=== PATIENT | male | born 1945 | race Caucasian/White ===

== ENCOUNTER → 2017-09-16 12:42 | Outpatient (CLI) | payer MEDICARE, MEDICAID, SELFPAY ==
--- NOTE | 2017-09-16 14:00 | DI.REPORT_ITS ---
SYMPTOMS/DIAGNOSIS: PAIN RT GROIN, R10.31 MRI OF THE PELVIS: Routine noncontrast examination was performed. The visualized bowel is unremarkable. The urinary is intact. The reproductive organs are unremarkable. No free pelvic fluid or adenopathy is present. The visualized abdominal aorta and its runoff are unremarkable. There is a fat containing left inguinal hernia present. The marrow signal is within normal limits. No evidence of an occult fracture or avascular necrosis. The muscles show normal signal and size. The visualized lower lumbar spine shows no evidence of central spinal canal or neural foraminal stenosis. IMPRESSION: Fat containing left inguinal hernia. No evidence of a pelvic mass or adenopathy.
== END ==
PROVIDERS: PCP Nurse Practitioner; Visit Provider Nurse Practitioner
DX: R10.31 Right lower quadrant pain (principal); K40.90 Unilateral inguinal hernia, without obstruction or gangrene, not specified as recurrent
CPT/HCPCS: 72195

== ENCOUNTER 2017-10-20 10:40 | Outpatient (CLI) | payer MEDICARE, MEDICAID, SELFPAY ==
--- NOTE | 2017-10-20 10:16 | DI.RAD_ITS ---
SYMPTOMS/DIAGNOSIS: CAREN HIP PAIN, M25.551, M25.552 PELVIS AND BILATERAL HIPS: The hip joint spaces are well maintained. There is minimal acetabular spurring. There is mild spurring at the greater trochanters. The SI joints are not optimally seen however there is apparent partial ankylosis. This is better seen on previous CT from [id number]. The findings could be secondary to ankylosing spondylitis. Clinical correlation is recommended.
[2017-10-20 11:08] LABS: HCT 45.1 % (40.0-50.0); HGB 15.1 g/dL (13.5-17.5); Mean Corp. HGB Concentration 33.5 g/dL (32.0-36.0); Mean Corpuscular Hemoglobin 30.5 pg (27.0-33.0); Mean Corpuscular Volume 91.1 fL (80-95); Mean Platelet Volume 10.4 fL (8.0-11.0); Platelet Count 227 x1000/uL (130-400); RBC 4.95 m/cumm (4.50-6.00); RBC Distribution Width 13.1 % (11.8-14.1); White Blood Cell Count 7.81 k/cumm (4.4-10.8)
[2017-10-20 11:47] LABS: Hemoglobin A1C 9.9 % (4.5-6.2)
[2017-10-20 12:13] LABS: ALT 40 U/L (12-78); AST 21 U/L (15-37); Albumin 3.8 g/dL (3.4-5.0); Alkaline Phosphatase 124 U/L (46-116); Anion Gap 10.2 mmol/L (3-11); BUN 25 mg/dL (7-18); Bilirubin, Total 0.8 mg/dL (0.2-1.0); CO2 23.8 mmol/L (21.0-32.0); CREATININE 1.01 mg/dL (0.70-1.30); Calcium 9.3 mg/dL (8.5-10.1); Chloride 97 mmol/L (98-107); Cholesterol 251 mg/dL (50-200); Glucose 366 mg/dL (70-100); HDL Cholesterol 41 mg/dL (40-60); LDL CHOLESTEROL 173 mg/dL (<100); Potassium 5.4 mmol/L (3.5-5.1); Sodium 131 mmol/L (136-145); Total Protein 7.5 g/dL (6.4-8.2); Triglyceride 286 mg/dL (30-150)
== END 2017-10-20 11:00 ==
PROVIDERS: PCP Nurse Practitioner; Visit Provider Nurse Practitioner
DX: I10 Essential (primary) hypertension (principal); E11.9 Type 2 diabetes mellitus without complications; M25.551 Pain in right hip; M25.552 Pain in left hip; E78.00 Pure hypercholesterolemia, unspecified
CPT/HCPCS: 36415; 73521; 80053; 80061; 83721; 85027; 83036

== ENCOUNTER 2017-10-27 13:27 | Outpatient (REF) | payer MEDICARE, MEDICAID, SELFPAY ==
[2017-10-27 14:09] LABS: C-Reactive Protein 0.26 mg/dL (0.0-0.3)
[2017-10-27 15:46] LABS: ESR 18 MM/HR (1-20)
[2017-10-31 08:42] LABS: HLA-B27 Result Negative
== END 2017-10-27 13:47 ==
LOC: LBN 13:27
PROVIDERS: PCP Nurse Practitioner; Visit Provider Nurse Practitioner
DX: M25.559 Pain in unspecified hip (principal); M25.50 Pain in unspecified joint; M45.9 Ankylosing spondylitis of unspecified sites in spine
CPT/HCPCS: 85652; 86812; 84080; 86140

== ENCOUNTER 2018-01-25 11:16 | Observation (INO) | payer MEDICARE, MEDICAID, SELFPAY ==
[2018-01-25] VITALS (77 sets, daily range): BP systolic 96–202; BP diastolic 70–156; PULSE 61–79; RESP 10–21; TEMP 36.5–36.6; O2SAT 88–100
--- NOTE | 2018-01-25 10:54 | W.ED.GENAD ---
Discharge Plan Disposition Condition: Stable Discharge Details Chief Complaint: Chest Pain Reason For Visit: CHEST PAIN Admit Date/Time: 01/25/18 18:34 Admit Provider: Dilan Aguilar Attending Provider: Carson Mccrary Primary Care Provider: Eleonora Ramirez ED Provider: Maxine Becerra Discharge Instructions Activity:: No Strenuous Activity Equipment/Supplies:: No Equipment Needed Diet:: Cardiac Diet Discharge Orders Discharge Orders: Discharge Order (Routine); Ordered 01/26/18 Ordered By: Carson Mccrary Discharge Data Discharge Date/Time-TO BE ENTERED AT DEPARTURE: 01/25/18 20:07 Medical Decision Making Manuel Triplett is a 72 y/o man with history of coronary artery disease, insulin dependent diabetes, GERD, hypertension who presented to the emergency department with exertiona chest pain, SOB, and RUQ abd pain>LUQ. On exam Pt is well and non-toxic appearing, comfortable. Benign cardiopulmonary exam. TTP across upper abd without peritoneal signs. Concern for ACS vs PE vs PNA vs GB dz vs pancreatitis vs GERD vs metabolic/lyte derangement vs less likely other acute abd process. Exam/hx not c/w sepsis, acute aortic process, mesentric ischemia. Plan for EKG, cxr, screening labs, telemetry, RUQ US. Will monitor and reassess. EKG shows no STEMI. CXR okay. US okay. Pt reporting worsening abd pain. D-dimer elevated. Trop okay. Unclear etiology of Pt's symptoms, however in setting of uncontrolled DM, taking no meds, concern for possible acute abd pathology, PE, PNA, other. Plan for CT chest/abd/pelvis. CT shows ? mild enteritis, no other acute process. Given exertional CP, concern for unstable angina. Rpt trop okay, rpt EKG. Plan for admission. Clinical Impression: chest pain, abd pain Disposition: [facility] inpt Medical Records Medical records reviewed: Yes I reviewed the patient's medical records. Imaging Data Radiologic Study: Attestation: I personally reviewed and interpreted this imaging study as follows: Radiologist's impression: PA AND LATERAL CHEST: Comparison 04/28/17. The heart is normal in size. The lungs are clear. The mediastinal structures and pleura appear intact. CONCLUSION: Normal chest. CT SCAN OF THE ABDOMEN AND PELVIS: Comparison is 07/29/17. There is no evidence of a hepatic mass. The portal and superior mesenteric veins are patent. The gallbladder is negative. No biliary ductal dilatation is seen. The pancreas, spleen and adrenal glands are unremarkable. Note is made of prior granulomatous disease in the spleen and liver. The kidneys show normal and symmetric enhancement. No solid renal mass is seen. Note is made of bilateral hypodensities most suggestive of renal cysts. No obstructive uropathy is identified. The urinary bladder is intact. The prostate gland is enlarged. There is atherosclerosis of the abdominal aorta, but no aneurysmal dilatation is seen. No significant abdominal or pelvic adenopathy, ascites or pneumoperitoneum is present. There is a small hiatal hernia. There is diverticulosis of the colon, but no evidence of acute diverticulitis. There is a normal appendix visualized. There is a question of mild thickening of the wall of a few loops of small bowel in the left upper quadrant and a mild enteritis cannot be excluded. Degenerative changes are present in the spine. IMPRESSION: Question of mild thickening of the wall of loops of small bowel in the left upper quadrant, which may represent a mild enteritis. CT SCAN OF THE CHEST: CT scan of the chest was performed according to the pulmonary embolus protocol. There is no evidence of a pulmonary embolus. The thoracic aorta shows no evidence of dissection or aneurysm. Heart size is mildly enlarged. No evidence of right ventricular dysfunction. No significant pericardial effusion is seen. Coronary artery calcifications are present. No significant thoracic adenopathy, pleural effusion or pneumothorax is identified. No focal infiltrates are seen. The tracheobronchial tree is unremarkable. Degenerative changes are seen in the spine. No aggressive osseous lesions are identified. IMPRESSION: No acute pulmonary process. No evidence of a pulmonary embolus, thoracic aortic dissection or aneurysm. ABDOMINAL ULTRASOUND: Routine examination. The aorta and IVC are unremarkable. The liver is enlarged measuring 19 cm in length. There is diffuse increased echogenicity of the liver consistent with fatty infiltration. No evidence of a hepatic mass is seen. The gallbladder, bile ducts and spleen are unremarkable. There is limited visualization of the head and body of the pancreas but the visualized are unremarkable. The kidneys are unremarkable except for tiny simple cysts seen in the left kidney. IMPRESSION: Hepatomegaly and hepatic steatosis. Lab Data Lab results reviewed: Yes I reviewed the patient's lab results. ECG Data Attestation: I personally reviewed and interpreted this ECG (s) as follows: Interpretation: EKG shows sinus rhythm at 65, left axis, nonspecific T wave changes, nondiagnostic EKG HPI General Mode of arrival: ambulatory. Date/Time Provider Initiated Documentation: 01/25/18 11:22. Limitations to Documentation: no limitations. Information obtained by: patient, RN notes reviewed and old records reviewed. HPI Narrative: Manuel Triplett is a 72 y/o man with history of coronary artery disease, insulin dependent diabetes, GERD, hypertension presenting to the emergency department with chest pain and abdominal pain. Patient reports that 8 months ago he stopped taking his Plavix, insulin, and all of his other medications because he did not feel like taking them anymore. Patient reports that he has felt fine since stopping his medications until the past few days. He reports that 3 or 4 days ago he developed dull pain across his chest worse with exertion. He reports that he has been having the pain while he goes outside to feed his animals, and then he comes in, lies down, and the pain improves. Patient reports that this morning he developed sharp pain in his right chest and in his upper abdomen that was more severe and was stabbing in nature. He called his PCP, who told him to come to the emergency room for evaluation. Patient reports that he has had shortness of breath over the past few days associated with his chest pain, and also shortness of breath associated with his worsening pain today. Upon arrival here his pain had improved. No fever, no cough, no vomiting/diarrhea, no dysuria, no weakness, no numbness/tingling, no rash. No recent illnesses. Has been eating and drinking as usual. Related Data Home Medications Medication Instructions Recorded Confirmed Cookistouch Ultra Test #180 strip 10/31/14 01/31/18 lancets [Socialltouch Delica] #100 ea 01/21/17 01/31/18 blood-glucose meter [Onetouch #1 01/22/17 01/31/18 Verio] blood sugar diagnostic [Onetouch #100 strip 07/20/17 01/31/18 Verio] omeprazole 40 mg capsule,delayed 40 mg PO DAILY #90 cap 02/01/18 release clopidogrel 75 mg tablet 75 mg PO DAILY #90 tab 02/02/18 insulin glargine (U-100) 100 30 unit SC DAILY #45 ml 02/02/18 unit/mL (3 mL) subcutaneous pen isosorbide mononitrate ER 30 mg 30 mg PO DAILY #90 tab 02/02/18 tablet,extended release 24 hr lisinopril 20 mg tablet 20 mg PO DAILY #90 tab 02/02/18 metoprolol tartrate 25 mg tablet 25 mg PO Q12H #180 tab 02/02/18 nitroglycerin 0.4 mg sublingual 0.4 mg SUBLINGUAL Q5 MIN PRN X3 02/02/18 tablet PRN #60 tab pen needle, diabetic 32 gauge x #150 each 02/02/18 rosuvastatin 40 mg tablet 40 mg PO DAILY #90 tab 02/02/18 tamsulosin 0.4 mg capsule 0.4 mg PO DAILY #90 cap 02/02/18 Previous Rx's Medication Instructions Recorded lancets [Onetouch Deljuanpablo] #100 ea 01/21/17 blood sugar diagnostic [Onetouch #100 strip 07/20/17 Verio] omeprazole 40 mg capsule,delayed 40 mg PO DAILY #90 cap 02/01/18 release clopidogrel 75 mg tablet 75 mg PO DAILY #90 tab 02/02/18 insulin glargine (U-100) 100 30 unit SC DAILY #45 ml 02/02/18 unit/mL (3 mL) subcutaneous pen isosorbide mononitrate ER 30 mg 30 mg PO DAILY #90 tab 02/02/18 tablet,extended release 24 hr lisinopril 20 mg tablet 20 mg PO DAILY #90 tab 02/02/18 metoprolol tartrate 25 mg tablet 25 mg PO Q12H #180 tab 02/02/18 nitroglycerin 0.4 mg sublingual 0.4 mg SUBLINGUAL Q5 MIN PRN X3 02/02/18 tablet PRN #60 tab pen needle, diabetic 32 gauge x #150 each 02/02/18 rosuvastatin 40 mg tablet 40 mg PO DAILY #90 tab 02/02/18 tamsulosin 0.4 mg capsule 0.4 mg PO DAILY #90 cap 02/02/18 Allergies Allergy/AdvReac Type Severity Reaction Status Date / Time cayenne Allergy Severe Swelling/Ed Unverified 01/31/18 13:19 gigi No Known Drug Allergies Allergy Unverified 01/31/18 13:19 Review of Systems Review of Systems Constitutional: denies fevers Eyes: denies eye pain ENT: denies facial pain, dental pain, sore throat Cardiovascular: reports chest pain, denies edema Respiratory: denies cough, reports SOB GI: denies vomiting, diarrhea, reports abd pain : denies flank pain MSK: denies back pain, neck pain, arthralgias, myalgias Skin: denies rash Neuro: denies headaches, lightheadedness, weakness PFSH 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) Non compliance w medication regimen (Acute) CAD (coronary artery disease) DM (diabetes mellitus) Essential hypertension GERD (gastroesophageal reflux disease) History of colon polyps Hyperlipidemia Family History Mother Essential hypertension Personal history of malignant neoplasm Myocardial infarction Father Personal history of malignant neoplasm Brother Myocardial infarction Colonoscopy (05/23/15) Colonoscopy - MAC EGD - MAC EGD w/ BX (06/08/16) Repair of inguinal hernia Rotator Cuff Repair (09/02/14) Stent placement Family History Mother Essential hypertension Personal history of malignant neoplasm Myocardial infarction Father Personal history of malignant neoplasm Brother Myocardial infarction Medical History 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) Non compliance w medication regimen (Acute) CAD (coronary artery disease) DM (diabetes mellitus) Essential hypertension GERD (gastroesophageal reflux disease) History of colon polyps Hyperlipidemia Social History adopted: No caregiver/support person: No foster care: No household members: none housing: house lives independently: Yes number of children: 0 penitentiary: No current occupational status: disabled pets and animals: Yes leisure activities: hunting and fishing Hx Recent Travel: No well-balanced diet: rarely or never daily servings fruits/ve-1 daily servings of milk/calcium: 0-1 eating out: rarely or never reads food labels: seldom or never Smoking/Tobacco Use Status: Never Surgical History Colonoscopy (05/23/15) Colonoscopy - MAC EGD - MAC EGD w/ BX (06/08/16) Repair of inguinal hernia Rotator Cuff Repair (09/02/14) Stent placement Social History adopted: No caregiver/support person: No foster care: No household members: none housing: house lives independently: Yes number of children: 0 penitentiary: No current occupational status: disabled pets and animals: Yes leisure activities: hunting and fishing Hx Recent Travel: No well-balanced diet: rarely or never daily servings fruits/ve-1 daily servings of milk/calcium: 0-1 eating out: rarely or never reads food labels: seldom or never Smoking/Tobacco Use Status: Never Exam Narrative Exam Narrative: Constitutional: well and [id number], pleasant, conversing normally HENT: head atraumatic, normocephalic normal inspection, mucous membranes moist Eyes: conjunctiva normal, sclera normal, pupils 3mm b/l Neck: no stridor, normal ROM, trachea midline Chest: normal inspection Resp: normal work of breathing, LCTAB Cardio: normal rate, normal rhythm, no murmur appreciated GI: abdomen soft, non-distended, tender across upper abd, worse on right, neg murphys, no rebound or guarding Back: normal inspection, no rash Skin: warm, dry, normal color, no rash Neuro: alert, not altered, grossly non-focal, normal tone Ext: no edema Psych: normal mood, normal affect, normal behavior
--- NOTE | 2018-01-25 11:23 | DI.RAD_ITS ---
SYMPTOMS/DIAGNOSIS: SHORTNESS OF BREATH PA AND LATERAL CHEST: Comparison 04/28/17. The heart is normal in size. The lungs are clear. The mediastinal structures and pleura appear intact. CONCLUSION: Normal chest.
[2018-01-25 11:34] LABS: Abs Immature Grans 0.02 k/cumm (0.0-0.09); Absolute Basophil Count 0.03 k/cumm (0.0-0.2); Absolute Eosinophil Count 0.16 k/cumm (0.0-0.7); Absolute Lymphocyte Count 2.01 k/cumm (1.2-3.4); Absolute Monocyte Count 0.51 k/cumm (0.11-0.7); Absolute Neutrophil Count 3.39 k/cumm (1.2-6.7); Basophils % 0.5; Eosinophils % 2.6; HCT 44.2 % (40.0-50.0); HGB 15.2 g/dL (13.5-17.5); Immature Grans % 0.3; Lymphocytes % 32.8; Mean Corp. HGB Concentration 34.4 g/dL (32.0-36.0); Mean Corpuscular Hemoglobin 30.7 pg (27.0-33.0); Mean Corpuscular Volume 89.3 fL (80-95); Mean Platelet Volume 9.8 fL (8.0-11.0); Monocytes % 8.3; Neutrophils % 55.5; Platelet Count 259 x1000/uL (130-400); RBC 4.95 m/cumm (4.50-6.00); RBC Distribution Width 13.6 % (11.8-14.1); White Blood Cell Count 6.12 k/cumm (4.4-10.8)
--- NOTE | 2018-01-25 11:53 | DI.US_ITS ---
SYMPTOMS/DIAGNOSIS: RUQ PAIN AND TENDERNESS ABDOMINAL ULTRASOUND: Routine examination. The aorta and IVC are unremarkable. The liver is enlarged measuring 19 cm in length. There is diffuse increased echogenicity of the liver consistent with fatty infiltration. No evidence of a hepatic mass is seen. The gallbladder, bile ducts and spleen are unremarkable. There is limited visualization of the head and body of the pancreas but the visualized are unremarkable. The kidneys are unremarkable except for tiny simple cysts seen in the left kidney. IMPRESSION: Hepatomegaly and hepatic steatosis. The findings were discussed with Dr. Becerra of the emergency department on the date of the examination.
[2018-01-25 12:03] LABS: ALT 35 U/L (12-78); AST 16 U/L (15-37); Albumin 3.6 g/dL (3.4-5.0); Alkaline Phosphatase 151 U/L (46-116); Anion Gap 12.5 mmol/L (3-11); BUN 21 mg/dL (7-18); Bilirubin, Total 0.5 mg/dL (0.2-1.0); CO2 24.5 mmol/L (21.0-32.0); CREATININE 0.92 mg/dL (0.70-1.30); Calcium 9.3 mg/dL (8.5-10.1); Chloride 97 mmol/L (98-107); Glucose 342 mg/dL (70-100); Lipase 144 U/L (73-393); Potassium 4.2 mmol/L (3.5-5.1); Sodium 134 mmol/L (136-145); Total Protein 7.8 g/dL (6.4-8.2); Troponin I 0.02 ng/mL (0.00-0.06)
[2018-01-25 12:06] LABS: D-Dimer 627 ng/mlFEU (<500)
[2018-01-25 13:56] LABS: Bilirubin Negative (Negative); Blood Negative (Negative); Clarity Clear; Glucose 500 mg/dL (Negative); Ketones 15 mg/dL (Negative); Leukocyte Esterase Negative (Negative); Nitrite Negative (Negative); Specific Gravity 1.015 (1.005-1.025); Urobilinogen 0.2 EU/dL (Up TO 0.2); pH 5.5 (5-8)
[2018-01-25] MEDS: Omnipaque 350 MG/ML 100 ML BTL IJ (14:12)
--- NOTE | 2018-01-25 14:26 | DI.CT_ITS ---
SYMPTOMS/DIAGNOSIS: UPPER ABDOMINAL PAIN RADIATING INTO CHEST, SHORTNESS OF BREATH CT SCAN OF THE CHEST, ABDOMEN AND PELVIS: CT angiography was performed with multi slice acquisition and multi planar and 3D reconstruction. CT SCAN OF THE ABDOMEN AND PELVIS: Comparison is 07/29/17. There is no evidence of a hepatic mass. The portal and superior mesenteric veins are patent. The gallbladder is negative. No biliary ductal dilatation is seen. The pancreas, spleen and adrenal glands are unremarkable. Note is made of prior granulomatous disease in the spleen and liver. The kidneys show normal and symmetric enhancement. No solid renal mass is seen. Note is made of bilateral hypodensities most suggestive of renal cysts. No obstructive uropathy is identified. The urinary bladder is intact. The prostate gland is enlarged. There is atherosclerosis of the abdominal aorta , but no aneurysmal dilatation is seen. No significant abdominal or pelvic adenopathy, ascites or pneumoperitoneum is present. There is a small hiatal hernia. There is diverticulosis of the colon, but no evidence of acute diverticulitis. There is a normal appendix visualized. There is a question of mild thickening of the wall of a few loops of small bowel in the left upper quadrant and a mild enteritis cannot be excluded. Degenerative changes are present in the spine. IMPRESSION: Question of mild thickening of the wall of loops of small bowel in the left upper quadrant, which may represent a mild enteritis. CT SCAN OF THE CHEST: CT scan of the chest was performed according to the pulmonary embolus protocol. There is no evidence of a pulmonary embolus. The thoracic aorta shows no evidence of dissection or aneurysm. Heart size is mildly enlarged. No evidence of right ventricular dysfunction. No significant pericardial effusion is seen. Coronary artery calcifications are present. No significant thoracic adenopathy, pleural effusion or pneumothorax is identified. No focal infiltrates are seen. The tracheobronchial tree is unremarkable. Degenerative changes are seen in the spine. No aggressive osseous lesions are identified. IMPRESSION: No acute pulmonary process. No evidence of a pulmonary embolus, thoracic aortic dissection or aneurysm. The findings were discussed with the Emergency Department on the date of the examination.
[2018-01-25 15:57] LABS: Troponin I 0.02 ng/mL (0.00-0.06)
[2018-01-25] MEDS: Normal Saline 1,000 ML 1000 ML IV (16:17)
[2018-01-25] MEDS: Aspirin 81 MG CHEW 324 MG CH (16:49)
[2018-01-25] MEDS: Clopidogrel 300 MG TAB PO (19:30)
[2018-01-25] MEDS: Metoprolol 25 MG TAB PO ×2 (19:31→23:17)
[2018-01-25 19:59] LABS: Troponin I 0.02 ng/mL (0.00-0.06)
[2018-01-25] MEDS: Rosuvastatin 10 MG TAB 40 MG PO (20:46)
[2018-01-25] MEDS: Enoxaparin 40 MG/0.4 ML SYR SC (20:46)
--- NOTE | 2018-01-25 21:07 | W.PM.HP.N ---
Date of service: 01/25/18 Time of Service: 21:32 Assessment and Plan (1) Chest pain: Current visit: No Status: Acute So far he is ruled out for an acute myocardial infarction by multiple normal troponin I levels. Some features of his chest pain are suggestive of his GERD while the exertional dyspnea and exertional chest discomfort are worrisome for progressive coronary artery disease. Patient was signed out to me by the emergency room as a possible unstable angina although he had no dynamic EKG changes and negative troponin levels. Nevertheless he deserves further investigation with a stress MPI study. Patient needs to restart his statin therapy as well as beta blockers and aspirin and Plavix to treat his known coronary artery disease. If his stress MPI is grossly abnormal and he should be referred for cardiac catheterization with either PCI or revascularization. (2) Essential hypertension: Current visit: No Status: Acute I will resume his metoprolol as well as his lisinopril to control his hypertension. (3) CAD (coronary artery disease), apache coronary artery: Current visit: No Status: Acute Workup as outlined above (4) Uncontrolled type 2 diabetes mellitus: Current visit: No Status: Acute We will start the patient on carbohydrate coverage as well as sliding scale coverage for elevated blood sugars. I will also start him on low-dose twice a day treatment with Levemir. Check a glycohemoglobin A1c in the morning. History of Present Illness Chief Complaint: chest pain Narrative: 72-year-old male with a past medical history significant for coronary artery disease status post single coronary stent 5 or 6 years ago, TIAs/CVA, hypertension, hyperlipidemia, type 2 diabetes mellitus requiring insulin, gastroesophageal reflux disease who presents emergency department with acute right sided sharp chest pain that began at rest while he was talking with his neighbor. He says it was a stabbing type of pain and took his breath away. There was radiation of the pain across to the left side of his chest. He is also been experiencing exertional dyspnea for the last 2-3 months as well as epigastric bloating and discomfort. For last few days he has had exertional chest discomfort when he goes up to feed his animals. Patient previously had been on clopidogrel, insulin, metoprolol, lisinopril, Janumet, Flomax but stopped all of his medications about 6 months ago. He says he stopped taking his medications because he felt that they were not helping him and were not improving his symptoms. He says at times his blood sugars were going up to 500 in spite of his insulin and Janumet. Today when he had the chest pain he tried calling his primary care provider but could not reach his provider however his doctor's office called EMS for him because of his acute dyspnea. Workup in the emergency room included routine labs, EKG, chest x-ray. Serial EKGs were obtained the first 1 at 11:09 AM and repeat one performed at 194. These demonstrated normal sinus rhythm at a rate of 65 bpm with nonspecific flattening of his T waves in the inferolateral leads. He has early transition of his R waves in V2 suggestive of pulmonary disease. He also has a left anterior fascicular block. Repeat ECG at 1941 hrs. showed no changes. His routine labs including CBC which was unremarkable. D-dimer was elevated at 627 but still within normal when corrected for his age. CMP showed elevated BUN of 21 with a normal creatinine 0.92 and a glucose of 342. LFTs were normal except for his alkaline phosphatase of 151. Troponin levels were normal x3 sets. Lipase was normal 141. Urinalysis was remarkable for 500 mg/dL of glucose and 50 mg/dL ketones. PA lateral chest x-ray was read as normal. Abdominal ultrasound was performed and shows hepatomegaly and hepatic steatosis. Gallbladder bile ducts and spleen were unremarkable. CT of the abdomen pelvis and chest with contrast showed questionable mild thickening of the wall of the loops of small bowel in the left upper quadrant suggestive of mild enteritis. CT scan of the chest showed no acute bony process and no evidence of aortic aneurysm or pulmonary embolus. When asked about anything that he was given that alleviated his chest discomfort he states that his chest pain was resolving by the time he reached the emergency room. He has remained pain-free since admission. Patient is now admitted in the ICU is a medical/surgical overflow on telemetry to evaluate his exertional dyspnea and his chest pains. Because of his known coronary artery disease with previous stent with no follow-up stress testing after the stent patient will need further evaluation with a treadmill stress MPI study to rule out progression of his coronary artery disease. Patient will be restarted on statin therapy along with beta blockers aspirin and Plavix as well as insulin to control his blood sugars. 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) Non compliance w medication regimen (Acute) CAD (coronary artery disease) DM (diabetes mellitus) Essential hypertension GERD (gastroesophageal reflux disease) History of colon polyps Hyperlipidemia Family History Mother Essential hypertension Personal history of malignant neoplasm Myocardial infarction Father Personal history of malignant neoplasm Brother Myocardial infarction Colonoscopy (05/23/15) Colonoscopy - MAC EGD - MAC EGD w/ BX (06/08/16) Repair of inguinal hernia Rotator Cuff Repair (09/02/14) Stent placement Family History Mother Essential hypertension Personal history of malignant neoplasm Myocardial infarction Father Personal history of malignant neoplasm Brother Myocardial infarction Medical History 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) Non compliance w medication regimen (Acute) CAD (coronary artery disease) DM (diabetes mellitus) Essential hypertension GERD (gastroesophageal reflux disease) History of colon polyps Hyperlipidemia Social History adopted: No caregiver/support person: No foster care: No household members: none housing: house lives independently: Yes number of children: 0 mcc: No current occupational status: disabled pets and animals: Yes leisure activities: hunting and fishing Hx Recent Travel: No well-balanced diet: rarely or never daily servings fruits/ve-1 daily servings of milk/calcium: 0-1 eating out: rarely or never reads food labels: seldom or never Smoking/Tobacco Use Status: Never Surgical History Colonoscopy (05/23/15) Colonoscopy - MAC EGD - MAC EGD w/ BX (06/08/16) Repair of inguinal hernia Rotator Cuff Repair (09/02/14) Stent placement Social History adopted: No caregiver/support person: No foster care: No household members: none housing: house lives independently: Yes number of children: 0 mcc: No current occupational status: disabled pets and animals: Yes leisure activities: hunting and fishing Hx Recent Travel: No well-balanced diet: rarely or never daily servings fruits/ve-1 daily servings of milk/calcium: 0-1 eating out: rarely or never reads food labels: seldom or never Smoking/Tobacco Use Status: Never Meds Home Medications Medication Instructions Recorded Confirmed Type Go-Page Digital MediaTouch Ultra Test #180 strip 10/31/14 02/08/18 History lancets [Onetouch Delica] #100 ea 01/21/17 02/08/18 Rx blood-glucose meter [Onetouch #1 01/22/17 02/08/18 History Verio] blood sugar diagnostic [Onetouch #100 strip 07/20/17 02/08/18 Rx Verio] omeprazole 40 mg capsule,delayed 40 mg PO DAILY #90 cap 02/01/18 02/08/18 Rx release clopidogrel 75 mg tablet 75 mg PO DAILY #90 tab 02/02/18 02/08/18 Rx insulin glargine (U-100) 100 30 unit SC DAILY #45 ml 02/02/18 02/08/18 Rx unit/mL (3 mL) subcutaneous pen isosorbide mononitrate ER 30 mg 30 mg PO DAILY #90 tab 02/02/18 02/08/18 Rx tablet,extended release 24 hr lisinopril 20 mg tablet 20 mg PO DAILY #90 tab 02/02/18 02/08/18 Rx metoprolol tartrate 25 mg tablet 25 mg PO Q12H #180 tab 02/02/18 02/08/18 Rx nitroglycerin 0.4 mg sublingual 0.4 mg SUBLINGUAL Q5 MIN PRN X3 02/02/18 02/08/18 Rx tablet PRN #60 tab pen needle, diabetic 32 gauge x #150 each 02/02/18 02/08/18 Rx 5/32 rosuvastatin 40 mg tablet 40 mg PO DAILY #90 tab 02/02/18 02/08/18 Rx tamsulosin 0.4 mg capsule 0.4 mg PO DAILY #90 cap 02/02/18 02/08/18 Rx meloxicam 15 mg tablet 15 mg PO DAILY #90 tab 02/08/18 02/08/18 Rx Allergies Allergy/AdvReac Type Severity Reaction Status Date / Time cayenne Allergy Severe Swelling/Ed Unverified 02/08/18 13:15 gigi No Known Drug Allergies Allergy Unverified 02/08/18 13:15 Exam Const General: cooperative, comfortable, no acute distress and well developed Nutritional Appearance: overweight Orientation: alert, awake and oriented x3 HENMT Head: normal to inspection, no palpable skull fracture, normocephalic and atraumatic General nose exam: external nose normal Face and sinus: normal facial exam Eyes General: appearance normal, both eyes and all related structures Neck Neck: normal visual inspection, full ROM, no lymphadenopathy, no meningeal signs, trachea midline and supple Thyroid: thyroid normal Carotids: normal carotid upstroke Lymphatic: no lymphadenopathy noted Chest Chest: normal inspection of the chest and normal palpation of entire chest wall Resp Effort & Inspection: normal respiratory effort and able to speak in complete sentences Auscultation: clear to auscultation bilaterally Cardio Jugular venous pressure: no JVD Palpation: normal PMI Rate: regular rate Rhythm: regular rhythm Heart Sounds: S1 normal and normal, physiologic split S2 Bruits: no abdominal aortic bruits and no carotid bruits Pulses: normal peripheral pulses GI Inspection: normal to inspection Palpation: soft and no hepatosplenomegaly Percussion: normal to percussion Auscultation: normal bowel sounds Rectal Exam: deferred Back/Spine/Pelvis Back: no CVA tenderness Cervical Spine: normal cervical lordosis Thoracic/Lumbar Spine: thoracic and lumbar spine normal to inspection Skin General skin exam: no rashes or lesions noted, elasticity normal and turgor normal Lesions: no lesions Rashes: no rashes Trauma: no lacerations or abrasions Wounds: no wounds Neuro General: alert, awake, oriented x3, moves all extremities and no focal motor deficits Cranial Nerves: CN's II-XI intact bilaterally Cognition: normal cognition Speech: speech normal Motor: muscle tone normal throughout, strength 5/5 throughout and no movement abnormalities noted Sensory Exam: no sensory deficits noted Extrem General: normal to inspection, full ROM, normal capillary refill, no joint enlargement and no calf tenderness Psych Appearance: grossly normal and well kempt Mental Status: mental status grossly normal Speech and Movement: speech and movement normal Mood: congruent mood Affect: normal affect Attitude: cooperative Thought Process: normal Thought Content: normal Insight: fair Judgment: fair Results Imaging Chest x-ray: report reviewed (CONCLUSION: Normal chest) Abdomen CT scan report/results: report reviewed (IMPRESSION: Question of mild thickening of the wall of loops of small bowel in the left upper quadrant, which may represent a mild enteritis.) CT scan - chest: report reviewed (MPRESSION: No acute pulmonary process. No evidence of a pulmonary embolus, thoracic aortic dissection or aneurysm.) Abdominal ultrasound report/results: report reviewed (IMPRESSION: Hepatomegaly and hepatic steatosis.) EKG: image reviewed (NSR 73 bpm, LAFB, nonspecific T wave flattening inferolateral leads) Labs : 01/25/18 11:22 01/25/18 11:22 Laboratory Results - last 24 hr 01/25/18 01/25/18 01/25/18 11:15 11:22 11:22 WBC 6.12 RBC 4.95 Hgb 15.2 Hct 44.2 MCV 89.3 MCH 30.7 MCHC 34.4 RDW 13.6 Plt Count 259 MPV 9.8 Immature Gran % 0.3 Neutrophils % 55.5 Lymphocytes % 32.8 Monocytes % 8.3 Eosinophils % 2.6 Basophils % 0.5 Absolute Neutrophils 3.39 Absolute Lymphocytes 2.01 Absolute Monocytes 0.51 Absolute Eosinophils 0.16 Absolute Basophils 0.03 D-Dimer 627 H Sodium 134 L Potassium 4.2 Chloride 97 L Carbon Dioxide 24.5 Anion Gap 12.5 H BUN 21 H Creatinine 0.92 Estimated GFR/1.73 m2 >= 60.00 Glucose 342 H Calcium 9.3 Total Bilirubin 0.5 AST 16 ALT 35 Alkaline Phosphatase 151 H Troponin I 0.02 Total Protein 7.8 Albumin 3.6 Lipase 144 Urine Color Urine Clarity Urine pH Ur Specific [place] Urine Protein Urine Ketones Urine Blood Urine Nitrite Urine Bilirubin Urine Urobilinogen Ur Leukocyte Esterase Urine Glucose 01/25/18 01/25/18 01/25/18 13:50 15:33 19:38 WBC RBC Hgb Hct MCV MCH MCHC RDW Plt Count MPV Immature Gran % Neutrophils % Lymphocytes % Monocytes % Eosinophils % Basophils % Absolute Neutrophils Absolute Lymphocytes Absolute Monocytes Absolute Eosinophils Absolute Basophils D-Dimer Sodium Potassium Chloride Carbon Dioxide Anion Gap BUN Creatinine Estimated GFR/1.73 m2 Glucose Calcium Total Bilirubin AST ALT Alkaline Phosphatase Troponin I 0.02 0.02 Total Protein Albumin Lipase Urine Color Yellow Urine Clarity Clear Urine pH 5.5 Ur Specific [place] 1.015 Urine Protein Negative Urine Ketones 15 H Urine Blood Negative Urine Nitrite Negative Urine Bilirubin Negative Urine Urobilinogen 0.2 Ur Leukocyte Esterase Negative Urine Glucose 500 H Last Vital Signs Temp 36.6 C 01/25/18 20:37 Pulse 66 01/25/18 20:37 Resp 13 01/25/18 20:37 BP 156/74 H 01/25/18 20:37 Pulse Ox 95 01/25/18 20:37
[2018-01-25] MEDS: Esomeprazole 40 MG CAPCR PO (22:10)
[2018-01-25] MEDS: Sucralfate 1 GM TAB PO (22:10)
[2018-01-25] MEDS: Insulin Aspart 300 UNITS/3 ML PEN SC (22:10)
[2018-01-25] MEDS: Normal Saline Flush 10 ML SYR IVP (23:28)
[2018-01-26] VITALS (10 sets, daily range): BP systolic 107–155; BP diastolic 48–79; PULSE 56–72; RESP 12–27; TEMP 36.5–36.8; O2SAT 91–97
[2018-01-26] MEDS: Metoprolol 25 MG TAB PO ×2 (06:40→12:07)
[2018-01-26 07:39] LABS: Cholesterol 235 mg/dL (50-200); HDL Cholesterol 33 mg/dL (40-60); LDL CHOLESTEROL 135 mg/dL (<100); Triglyceride 532 mg/dL (30-150)
[2018-01-26 07:51] LABS: Hemoglobin A1C 9.8 % (4.5-6.2)
[2018-01-26] MEDS: Sucralfate 1 GM TAB PO ×2 (08:19→12:07)
[2018-01-26] MEDS: Aspirin E.C. 81 MG TABEC PO (08:24)
[2018-01-26] MEDS: Clopidogrel 75 MG TAB PO (08:24)
[2018-01-26] MEDS: Lisinopril 20 MG TAB PO (08:24)
[2018-01-26] MEDS: Isosorbide Mononitrate 30 MG TABCR PO (08:27)
--- NOTE | 2018-01-26 08:27 | PHARADMIT ---
Admission Pharmacy Clinical Review CHEST PAIN Code Status Full Code Current Weight WgT-86.1 kg Renally Cleared and Narrow Therapeutic Index Meds CrCl~74 mL/min Meds-OK QTc Value / Action Taken QTc-421 na BP Control, Fever BP- 2155/74 Tmax- 36.6C Electrolytes reviewed Na- 134 K+4.2 DVT Prophylaxis Lovenox, Plavix,ASA-ec Opiate Usage / Scheduled Bowel Regimen Ordered No Yes Plt/SCr for Heparin / Enoxaparin Plts- 259 SCr-0.92 INR for Warfarin NA H/H stable, WBC/Bands H&H- 15.2/44.2 WBC- 6.12 Antibiotic appropriateness none Cultures and Sensitivities none Surgical ABX d/c within 24 hr na DM control / Insulin Dosing BG-342 Hg Aspart, Detemir Heart Failure (Check EF%) (SHIELA's, B-Block, Diuretics) Imdur, Lisinopril, Lopressor, IV to PO Switch No Home Meds Reviewed Yes Home Meds Not Ordered Flomax Comments Troponin: 0.02 ^ 0.02 ^ 0.02
[2018-01-26] MEDS: Insulin Aspart 300 UNITS/3 ML PEN SC ×4 (08:56→12:51)
--- NOTE | 2018-01-26 09:00 | MERGE_ITS ---
*[facility]* *[facility]* [address] [place] [address] Date of study: 01/26/2018 Transthoracic Echocardiography M-mode, complete 2D, complete spectral Doppler, and color Doppler *STUDY CONCLUSIONS* Summary: 1. Left ventricle: The cavity size was normal. Wall thickness was increased in a pattern of mild LVH. The estimated ejection fraction was 65%. Findings consistent with diastolic dysfunction. Doppler parameters are consistent with high ventricular filling pressure. 2. Mitral valve: There was mild regurgitation. 3. Left atrium: The atrium was mildly dilated. 4. Right ventricle: The cavity size was normal. Wall thickness was normal. Systolic function was normal. 5. Atrial septum: No defect or patent foramen ovale was identified. 6. Pulmonary arteries: Pulmonary systolic pressure was in the range of 15mm Hg to 25mm Hg. 7. Inferior vena cava: The vessel was normal in size. The respirophasic diameter changes were in the normal range (greater than or equal to 50%), consistent with normal central venous pressure. *PATIENT PRESENTATION* Height: 177.8cm ((70in) ) S/D Pressure: 155 / 74 Weight: 86.6kg ((190.6lb) ) BSA: 2.08m^2 Test start time: 09:00 AM. Test stop time: 10:00 AM. PERFORMING Unknown PERFORMING [facility] ORDERING Moisés Aguilar REFERRING Moisés Aguilar EMERGENCY MEDICAL TECHNICIAN/DRIVER Ny Brody RT (R)(CT), RDCS CONSULTING Eleonora Ramirez *PROCEDURE DATA* Procedure information: The patient was identified by two identifiers. This study was interpreted by [facility]. Pertinent images and digital data are archived for permanent storage and are available for subsequent review. Comparison was made to the study of 05/27/2016. Study status: Routine. Transthoracic echocardiography. M-mode, complete 2D, complete spectral Doppler, and color Doppler. A Transthoracic Echocardiogram was performed. Scanning was performed from the parasternal, apical, subcostal, and suprasternal notch acoustic windows. Images were obtained using an [id number] cardiac ultrasound machine. Image quality was good. Study completion: The patient tolerated the procedure well. History: PMH: Chest pain. *CARDIAC ANATOMY* Left ventricle: The cavity size was normal. Wall thickness was increased in a pattern of mild LVH. The estimated ejection fraction was 65%. The tissue Doppler parameters were abnormal. Findings consistent with diastolic dysfunction. Doppler parameters are consistent with high ventricular filling pressure. Aortic valve: Trileaflet. Doppler: There was no stenosis. There was no regurgitation. VTI ratio of LVOT to aortic valve: 0.74. Valve area (VTI): 2.6cm^2. Indexed valve area (VTI): 1.2cm^2/m^2. Peak velocity ratio of LVOT to aortic valve: 0.62. Valve area (Vmax): 2.2cm^2. Indexed valve area (Vmax): 1cm^2/m^2. Mean velocity ratio of LVOT to aortic valve: 0.66. Valve area (Vmean): 2.3cm^2. Indexed valve area (Vmean): 1.1cm^2/m^2. Mean gradient (S): 7.3mm Hg. Peak gradient (S): 13.8mm Hg. Aorta: Aortic root: The aortic root was normal in size. Ascending aorta: The ascending aorta was mildly dilated. Mitral valve: Doppler: There was no evidence for stenosis. There was mild regurgitation. Valve area by pressure half-time: 4cm^2. Indexed valve area by pressure half-time: 1.9cm^2/m^2. Left atrium: The atrium was mildly dilated. Atrial septum: No defect or patent foramen ovale was identified. Right ventricle: The cavity size was normal. Wall thickness was normal. Systolic function was normal. Pulmonic valve: Doppler: There was no evidence for stenosis. There was mild regurgitation. Tricuspid valve: Doppler: There was mild regurgitation. Pulmonary artery: Poorly visualized. Pulmonary systolic pressure was in the range of 15mm Hg to 25mm Hg. Right atrium: The atrium was normal in size. Pericardium: There was no pericardial effusion. Systemic veins: Inferior vena cava: The vessel was normal in size. The respirophasic diameter changes were in the normal range (greater than or equal to 50%), consistent with normal central venous pressure. Measurements Left ventricle Value 05/27/2016 Reference LV ID, ED, PLAX 6.0 cm 5.5 3.5 - 6.0 LV ID, ES, PLAX 3.8 cm 3.9 2.1 - 4.0 LV PW thickness, ED, PLAX 1.1 cm 1.4 LV end-diastolic volume, 63 ml 1-p A2C LV ejection fraction, 1-p 62 % 49 A2C LV end-diastolic volume, 96 ml 1-p A4C LV ejection fraction, 1-p 51 % 55 A4C LV e', lateral 0.039 m/sec LV E/e', lateral 17 LV e', medial 0.054 m/sec LV E/e', medial 13 LV e', average 0.046 m/sec LV E/e', average 15 Ventricular septum Value 05/27/2016 Reference IVS thickness, ED, PLAX 1.2 cm 1.5 LVOT Value 05/27/2016 Reference LVOT ID, A-P 2.1 cm 2.1 LVOT area 3.5 cm^2 3.4 LVOT peak velocity, S 1.16 m/sec 1.18 LVOT mean velocity, S 0.85 m/sec LVOT VTI, S 25.2 cm 28.2 LVOT peak gradient, S 5.4 mm Hg 5.6 LVOT mean gradient, S 3.3 mm Hg 3.7 Stroke volume (SV), LVOT 87 ml DP Stroke index (SV/bsa), 42 ml/m^2 LVOT DP Aortic valve Value 05/27/2016 Reference Aortic valve peak 1.9 m/sec velocity, S Aortic valve mean 1.28 m/sec velocity, S Aortic valve VTI, S 34.0 cm Aortic mean gradient, S 7.3 mm Hg 9 Aortic peak gradient, S 13.8 mm Hg 18 VTI ratio, LVOT/AV 0.74 0.6 Aortic valve area, VTI 2.6 cm^2 2 Velocity ratio, peak, 0.62 LVOT/AV Aortic valve area, peak 2.2 cm^2 2 velocity Velocity ratio, mean, 0.66 LVOT/AV Aortic valve area, mean 2.3 cm^2 velocity Aortic valve area/bsa, 1.1 cm^2/m^2 mean velocity Aorta Value 05/27/2016 Reference Aortic root ID, ED 3.5 cm 3.5 Ascending aorta ID, A-P, S 3.7 cm 3.7 Left atrium Value 05/27/2016 Reference LA ID, A-P, ES 4.1 cm LA ID/bsa, A-P 2.0 cm/m^2 <=2.2 LA area, ES, A4C (H) 28.2 cm^2 28 8.8 - 23.4 LA area, ES, A2C 22 cm^2 LA volume/bsa, ES, 1-p A4C 57 ml/m^2 51 LA volume, ES, 2-p 79 ml LA volume/bsa, ES, 2-p 38 ml/m^2 LA/aortic root ratio 1.18 1.18 Mitral valve Value 05/27/2016 Reference Mitral E-wave peak 0.68 m/sec 0.75 velocity Mitral A-wave peak 0.63 m/sec 0.52 velocity Mitral deceleration time 192 ms 150 - 230 Mitral pressure half-time 56 ms 81 Mitral E/A ratio, peak 1.07 1.44 Mitral valve area, PHT, DP 4 cm^2 2.7 Pulmonary veins Value 05/27/2016 Reference Pulmonary vein peak 0.39 m/sec 0.68 velocity, S Pulmonary vein peak 0.37 m/sec 0.64 velocity, D Pulmonary vein velocity 1.04 1.07 ratio, peak, S/D Pulmonary vein A-wave 0.24 m/sec reversal peak velocity Tricuspid valve Value 05/27/2016 Reference Tricuspid regurg peak 2.2 m/sec 2.8 velocity Tricuspid peak RV-RA 18.7 mm Hg 31.8 gradient Right atrium Value 05/27/2016 Reference RA area, ES, A4C 16.2 cm^2 15 8.3 - 19.5 Legend: (L) and (H) cheryle values outside specified reference range. I have personally reviewed the images and have reviewed and edited the reported findings. Electronically signed by Damaso Rucker MD 01/26/2018 10:42
--- NOTE | 2018-01-26 09:21 | PDOC.CMIN ---
- If Service Date Differs Date of service: 01/26/18 Time of Service: 09:21 Care Management Initial Assess REASON FOR HOSPITALIZATION:: Chest pain. PAST MEDICAL HISTORY/PAST SURGICAL HISTORY:: CAD, Diabetes, essential hypertension, GERD, colon polyps, hyperlipidemia. Surgical hx: colonoscopy, EGD, repair of inguinal hernia, rotator cuff repair, stent placement. PREVIOUS FUNCTIONAL STATUS/SOCIAL/FAMILY SUPPORTS:: Manuel resides alone in [place] with his dog, Moris. He has no children but does have a few nieces who live locally, one of whom is supportive. Manuel lives in a home with no running water and reports that he collects rain water in barrels. 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 He sold his truck (which had been broken down) at recommendation of [employer], per patient, and is independent with his ADLs. CURRENT FUNCTIONAL STATUS:: Manuel is lying in bed in the ICU when CM visits this morning. He is engaged in conversation, makes good eye contact, and is talkative. It is anticipated that Manuel will discharge later today and have an outpatient stress test at a future date. Manuel denies chest pain and pressure or any other discomfort. He believes that his chest pain may be anxiety induced due to all of his stressors at home; his refridgerator is dying, his chest freezer, full of deer meat, stopped working, he has no running water, etc. Manuel has connected with [facility] at [facility] [employer] [facility] but is willing to have a referral sent to [facility] for possible additional support in the community. CM will fax a referral and follow up with [facility] on Manuel's behalf. ADVANCE DIRECTIVES:: None on file at [facility]. Has patient been provided with information about the portal?: Yes Did the patient sign up for the portal?: No (No internet access. ) CODE STATUS:: Full Code INSURANCE COVERAGE / FINANCIAL ISSUES:: Medicaid, Medicare. CURRENT HOME/COMMUNITY SERVICES/EQUIPMENT:: [facility]; [employer]. Manuel uses a cane on occassion when ambulating. PRIMARY CARE PHYSICIAN:: Eleonora Ramirez. POTENTIAL DISCHARGE NEEDS:: Follow up appointment with PCP. Outpatient stress test. PATIENT/FAMILY EDUCATION NEEDS:: Discharge education, any limitations, follow up plan of care. Ask Me Three discussion. ANTICIPATED BARRIERS TO DISCHARGE:: No anticipated barriers to discharge. TRANSPORTATION:: Manuel will discharge via private vehicle with his niece, Rivka. PLAN:: Manuel will discharge home when medically ready per MD. Anticipate patient will discharge with no services and follow up with his PCP. CM will continue to offer support to patient and care team regarding discharge planning and disposition.
--- NOTE | 2018-01-26 09:39 | INITIAL_ITS ---
- If Service Date Differs Date of service: 01/26/18 Time of Service: 09:21 Care Management Initial Assess REASON FOR HOSPITALIZATION:: Chest pain. PAST MEDICAL HISTORY/PAST SURGICAL HISTORY:: CAD, Diabetes, essential hypertension, GERD, colon polyps, hyperlipidemia. Surgical hx: colonoscopy, EGD, repair of inguinal hernia, rotator cuff repair, stent placement. PREVIOUS FUNCTIONAL STATUS/SOCIAL/FAMILY SUPPORTS:: Manuel resides alone in [place] with his dog, Moris. He has no children but does have a few nieces who live locally, one of whom is supportive. Manuel lives in a home with no running water and reports that he collects rain water in barrels. 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 He sold his truck (which had been broken down) at recommendation of [employer], per patient, and is independent with his ADLs. CURRENT FUNCTIONAL STATUS:: Manuel is lying in bed in the ICU when CM visits this morning. He is engaged in conversation, makes good eye contact, and is ta lkative. It is anticipated that Manuel will discharge later today and have an outpatient stress test at a future date. Manuel denies chest pain and pressure or any other discomfort. He believes that his chest pain may be anxiety induced due to all of his stressors at home; his refridgerator is dying, his chest freezer, full of deer meat, stopped working, he has no running water, etc. Manuel has connected with [facility] at [facility] [employer] but is willing to have a referral sent to [facility] for possible additional support in the community. CM will fax a referral and follow up with [facility] on Manuel's behalf. ADVANCE DIRECTIVES:: None on file at [facility]. Has patient been provided with information about the portal?: Yes Did the patient sign up for the portal?: No (No internet access. ) CODE STATUS:: Full Code INSURANCE COVERAGE / FINANCIAL ISSUES:: Medicaid, Medicare. CURRENT HOME/COMMUNITY SERVICES/EQUIPMENT:: [employer]; [facility]. Manuel uses a cane on occassion when ambulating. PRIMARY CARE PHYSICIAN:: Eleonora Ramirez. POTENTIAL DISCHARGE NEEDS:: Follow up appointment with PCP. Outpatient stress test. PATIENT/FAMILY EDUCATION NEEDS:: Discharge education, any limitations, follow up plan of care. Ask Me Three discussion. ANTICIPATED BARRIERS TO DISCHARGE:: No anticipated barriers to discharge. TRANSPORTATION:: Manuel will discharge via private vehicle with his niece, Rivka. PLAN:: Manuel will discharge home when medically ready per MD. Anticipate patient will discharge with no services and follow up with his PCP. CM will continue to offer support to patient and care team regarding discharge planning and disposition.
--- NOTE | 2018-01-26 11:23 | W.PM.DS.N ---
Date of service: 01/26/18 Time of Service: 11:24 DS: Diagnosis Discharge Diagnosis (1) Chest pain: Status: Acute (2) Essential hypertension: Status: Acute (3) CAD (coronary artery disease), [place] coronary artery: Status: Acute (4) Uncontrolled type 2 diabetes mellitus: Status: Acute Discharge Plan Disposition Patient Disposition: HOME Condition: Stable Discharge Details Reason For Visit: CHEST PAIN Admit Date/Time: 01/25/18 18:34 Admit Provider: Dilan Aguilar Attending Provider: Dilan Aguilar Primary Care Provider: Eleonora Ramirez Hospital Course Hospital Course: CC: CP HPI: 72-year-old male with a past medical history significant for coronary artery disease status post single coronary stent 5 or 6 years ago, TIAs/CVA, hypertension, hyperlipidemia, type 2 diabetes mellitus requiring insulin, gastroesophageal reflux disease who presents emergency department with acute right sided sharp chest pain that began at rest while he was talking with his neighbor. He says it was a stabbing type of pain and took his breath away. There was radiation of the pain across to the left side of his chest. He is also been experiencing exertional dyspnea for the last 2-3 months as well as epigastric bloating and discomfort. For last few days he has had exertional chest discomfort when he goes up to feed his animals. Patient previously had been on clopidogrel, insulin, metoprolol, lisinopril, Janumet, Flomax but stopped all of his medications about 6 months ago. He says he stopped taking his medications because he felt that they were not helping him and were not improving his symptoms. He says at times his blood sugars were going up to 500 in spite of his insulin and Janumet. Today when he had the chest pain he tried calling his primary care provider but could not reach his provider however his doctor's office called EMS for him because of his acute dyspnea. Workup in the emergency room included routine labs, EKG, chest x-ray. Serial EKGs were obtained the first 1 at 11:09 AM and repeat one performed at 1940. These demonstrated normal sinus rhythm at a rate of 65 bpm with nonspecific flattening of his T waves in the inferolateral leads. He has early transition of his R waves in V2 suggestive of pulmonary disease. He also has a left anterior fascicular block. Repeat ECG at 1940 hrs. showed no changes. His routine labs including CBC which was unremarkable. D-dimer was elevated at 627 but still within normal when corrected for his age. CMP showed elevated BUN of 21 with a normal creatinine 0.92 and a glucose of 342. LFTs were normal except for his alkaline phosphatase of 151. Troponin levels were normal x3 sets. Lipase was normal 141. Urinalysis was remarkable for 500 mg/dL of glucose and 50 mg/dL ketones. PA lateral chest x-ray was read as normal. Abdominal ultrasound was performed and shows hepatomegaly and hepatic steatosis. Gallbladder bile ducts and spleen were unremarkable. CT of the abdomen pelvis and chest with contrast showed questionable mild thickening of the wall of the loops of small bowel in the left upper quadrant suggestive of mild enteritis. CT scan of the chest showed no acute bony process and no evidence of aortic aneurysm or pulmonary embolus. When asked about anything that he was given that alleviated his chest discomfort he states that his chest pain was resolving by the time he reached the emergency room. He has remained pain-free since admission. Patient is now admitted in the ICU is a medical/surgical overflow on telemetry to evaluate his exertional dyspnea and his chest pains. Hospital Course: (1) Chest pain: Patient ruled out for an acute myocardial infarction by serial cardiac biomarkers. ECG with noted TW flattening inferolaterally, components of which were seen on prior tracing from 07/08/2016. Given Mr. Triplett' comorbidities, known CAD, and medication noncompliance now for the last 4-5 months it would be ideal to perform a stress test. However, currently there is a lack of stress testing ability over the course of the next 4 days due to lack of cardiology coverage and the weekend. Patient is also not willing to stay for 4 days until a stress test can be performed. The patient was restarted on his home regimen of DAPT with aspirin and plavix, high potency statin, and initiated on BB therapy as well. His cycled cardiac biomarkers remained negative. Owing to unvavailability of stress testing he was started on long acting nitrate, then walked extensive by nursing without any recurrence of dyspnea or chest pain. He reports intention to take his medications at this time. Will discharge patient cautiously, and urge him to return to the ED if he has recurrence of symptoms. Will also schedule for outpatient stress test. ECHO was obtained today prior to discharge and with normal LVEF and no noted wall motion abnormality. Also with Diastolic Dysfunction. (2) Essential hypertension: Resume metoprolol as well as his lisinopril. (3) Uncontrolled type 2 diabetes mellitus: HgA1C checked and markedly above goal at 9.8%. Restart home insulin regimen at discharge with 30 Units of lantus - dose aquired from last PCP note from October of this year. (4) Noncompliance Urged patient to take his medications, and follow-up with his primary doctor upon discharge. Home Meds and New Rx's Prescriptions: New lisinopril 20 mg Tablet 20 mg PO DAILY Qty: 30 RF: 0 isosorbide mononitrate 30 mg Tablet Extended Release 24 Hr 30 mg PO DAILY Qty: 30 RF: 0 clopidogrel [Plavix] 75 mg Tablet 75 mg PO DAILY Qty: 30 RF: 0 esomeprazole magnesium [Nexium] 40 mg Capsule,Delayed Release(Dr/Ec) 40 mg PO HS Qty: 30 RF: 0 nitroglycerin [Nitrostat] 0.4 mg Tablet, Sublingual 0.4 mg Sublingual Q5 MIN PRN X3 PRNQty: 9 RF: 0 rosuvastatin [Crestor] 10 mg Tablet 40 mg PO QPM Qty: 30 RF: 0 metoprolol tartrate 25 mg Tablet 25 mg PO Q12H Qty: 60 RF: 0 tamsulosin [Flomax] 0.4 mg capsule 0.4 mg PO DAILY Qty: 30 RF: 0 Lantus Solostar U-100 Insulin 100 unit/mL (3 mL) insulin pen 30 unit SC DAILY Qty: 15 RF: 0 No Action blood sugar diagnostic [OneTouch Ultra Test] 1 EACH strip 1 ea Miscellaneous 6 times daily Qty: 180 RF: 3 lancets [OneTouch Delica Lancets] 1 EACH misc 1 ea Miscellaneous DAILY Qty: 100 RF: 3 blood-glucose meter [OneTouch Verio System] 1 EACH misc Miscellaneous DAILY Qty: 1 RF: 0 pen needle, diabetic 1 EACH needle Miscellaneous DAILY Qty: 1 RF: 6 blood sugar diagnostic [OneTouch Verio] 1 EACH strip 1 ea Miscellaneous DAILY Qty: 100 RF: 3 Discharge Instructions Additional Instructions: Please take your medications as ordered, and follow-up with your primary within a week of discharge. A stress test is going to be scheduled for you soon. If you have recurrence of chest pain please come back to the emergency room. Activity:: No Strenuous Activity Equipment/Supplies:: No Equipment Needed Diet:: Cardiac Diet Discharge Orders Discharge Orders: Discharge Order (Routine); Ordered 01/26/18 Ordered By: Carson Mccrary Other Ambulatory Orders: Nuclear Medicine Stress Test (Outpt) (ONCE) (1) Timeframe: 1 Week Location: Determined by Patient Ordered By: Carson Mccrary DS: Data Vitals/I&O Vitals and I&O: Vital Signs Temperature 36.8 C 01/26/18 08:00 Temperature Source Temporal Artery Scan 01/26/18 08:00 Pulse 72 01/26/18 10:54 Pulse Rhythm Regular 01/26/18 08:00 Pulse 72 01/26/18 10:54 Respiratory Rate 15 01/26/18 10:54 Respiratory Effort Non-Labored 01/26/18 08:00 Respiratory Depth Normal 01/26/18 08:00 Respiratory Pattern Normal 01/26/18 08:00 Blood Pressure 107/70 01/26/18 10:54 Blood Pressure Mean 78 01/26/18 10:54 Blood Pressure Position Supine 01/25/18 20:37 Pulse Oximetry 97 01/26/18 08:01 Oxygen Delivery Method Room Air 01/26/18 08:00 Oxygen Flow Rate 0 01/26/18 08:00 Pain Level 0 01/26/18 08:00 Intake & Output 01/25/18 01/25/18 01/26/18 11:59 23:59 11:59 Intake Total 1400 / 1400 620 / 620 Output Total 1400 / 1400 Balance 1400 / 1400 -780 / -780 Weight 89.3 kg 87 kg 86.1 kg Intake: IV 1000 / 1000 20 / 20 Oral 400 / 400 600 / 600 Output: Urine 1400 / 1400 Other: Urine Color Yellow Urine Appearance Clear Urine Odor Normal Comment Pt reports incontinence. Voiding Methods Urinal Completed studies during hospitalization [Text1]: Exam(s) a US:US echocardiogram Date of study: 01/26/2018 Transthoracic Echocardiography M-mode, complete 2D, complete spectral Doppler, and color Doppler *STUDY CONCLUSIONS* Summary: 1. Left ventricle: The cavity size was normal. Wall thickness was increased in a pattern of mild LVH. The estimated ejection fraction was 65%. Findings consistent with diastolic dysfunction. Doppler parameters are consistent with high ventricular filling pressure. 2. Mitral valve: There was mild regurgitation. 3. Left atrium: The atrium was mildly dilated. 4. Right ventricle: The cavity size was normal. Wall thickness was normal. Systolic function was normal. 5. Atrial septum: No defect or patent foramen ovale was identified. 6. Pulmonary arteries: Pulmonary systolic pressure was in the range of 15mm Hg to 25mm Hg. 7. Inferior vena cava: The vessel was normal in size. The respirophasic diameter changes were in the normal range (greater than or equal to 50%), consistent with normal central venous pressure. Exam(s) 01/25/[address]:CT chest PE abd & pelvis w SYMPTOMS/DIAGNOSIS: UPPER ABDOMINAL PAIN RADIATING INTO CHEST, SHORTNESS OF BREATH CT SCAN OF THE CHEST, ABDOMEN AND PELVIS: CT angiography was performed with multi slice acquisition and multi planar and 3D reconstruction. CT SCAN OF THE ABDOMEN AND PELVIS: Comparison is 07/29/17. There is no evidence of a hepatic mass. The portal and superior mesenteric veins are patent. The gallbladder is negative. No biliary ductal dilatation is seen. The pancreas, spleen and adrenal glands are unremarkable. Note is made of prior granulomatous disease in the spleen and liver. The kidneys show normal and symmetric enhancement. No solid renal mass is seen. Note is made of bilateral hypodensities most suggestive of renal cysts. No obstructive uropathy is identified. The urinary bladder is intact. The prostate gland is enlarged. There is atherosclerosis of the abdominal aorta, but no aneurysmal dilatation is seen. No significant abdominal or pelvic adenopathy, ascites or pneumoperitoneum is present. There is a small hiatal hernia. There is diverticulosis of the colon, but no evidence of acute diverticulitis. There is a normal appendix visualized. There is a question of mild thickening of the wall of a few loops of small bowel in the left upper quadrant and a mild enteritis cannot be excluded. Degenerative changes are present in the spine. IMPRESSION: Question of mild thickening of the wall of loops of small bowel in the left upper quadrant, which may represent a mild enteritis. CT SCAN OF THE CHEST: CT scan of the chest was performed according to the pulmonary embolus protocol. There is no evidence of a pulmonary embolus. The thoracic aorta shows no evidence of dissection or aneurysm. Heart size is mildly enlarged. No evidence of right ventricular dysfunction. No significant pericardial effusion is seen. Coronary artery calcifications are present. No significant thoracic adenopathy, pleural effusion or pneumothorax is identified. No focal infiltrates are seen. The tracheobronchial tree is unremarkable. Degenerative changes are seen in the spine. No aggressive osseous lesions are identified. IMPRESSION: No acute pulmonary process. No evidence of a pulmonary embolus, thoracic aortic dissection or aneurysm. Exam(s) a US:US abdomen SYMPTOMS/DIAGNOSIS: RUQ PAIN AND TENDERNESS ABDOMINAL ULTRASOUND: Routine examination. The aorta and IVC are unremarkable. The liver is enlarged measuring 19 cm in length. There is diffuse increased echogenicity of the liver consistent with fatty infiltration. No evidence of a hepatic mass is seen. The gallbladder, bile ducts and spleen are unremarkable. There is limited visualization of the head and body of the pancreas but the visualized are unremarkable. The kidneys are unremarkable except for tiny simple cysts seen in the left kidney. IMPRESSION: Hepatomegaly and hepatic steatosis. Exam(s) a RAD:XR chest 2V PA & lateral SYMPTOMS/DIAGNOSIS: SHORTNESS OF BREATH PA AND LATERAL CHEST: Comparison 04/28/17. The heart is normal in size. The lungs are clear. The mediastinal structures and pleura appear intact. CONCLUSION: Normal chest. Labs on day of discharge: Labs from last 24 hours 01/26/18 01/26/18 01/25/18 06:20 06:20 19:38 WBC RBC Hgb Hct MCV MCH MCHC RDW Plt Count MPV Immature Gran % Neutrophils % Lymphocytes % Monocytes % Eosinophils % Basophils % Absolute Neutrophils Absolute Lymphocytes Absolute Monocytes Absolute Eosinophils Absolute Basophils D-Dimer Sodium Potassium Chloride Carbon Dioxide Anion Gap BUN Creatinine Estimated GFR/1.73 m2 Glucose Hemoglobin A1c 9.8 H Calcium Total Bilirubin AST ALT Alkaline Phosphatase Troponin I 0.02 Total Protein Albumin Triglycerides 532 H Total Cholesterol 235 H LDL Cholesterol Direct 135 H HDL Cholesterol 33 L Lipase Urine Color Urine Clarity Urine pH Ur Specific Edwards Urine Protein Urine Ketones Urine Blood Urine Nitrite Urine Bilirubin Urine Urobilinogen Ur Leukocyte Esterase Urine Glucose 01/25/18 01/25/18 01/25/18 15:33 13:50 11:22 WBC 6.12 RBC 4.95 Hgb 15.2 Hct 44.2 MCV 89.3 MCH 30.7 MCHC 34.4 RDW 13.6 Plt Count 259 MPV 9.8 Immature Gran % 0.3 Neutrophils % 55.5 Lymphocytes % 32.8 Monocytes % 8.3 Eosinophils % 2.6 Basophils % 0.5 Absolute Neutrophils 3.39 Absolute Lymphocytes 2.01 Absolute Monocytes 0.51 Absolute Eosinophils 0.16 Absolute Basophils 0.03 D-Dimer Sodium Potassium Chloride Carbon Dioxide Anion Gap BUN Creatinine Estimated GFR/1.73 m2 Glucose Hemoglobin A1c Calcium Total Bilirubin AST ALT Alkaline Phosphatase Troponin I 0.02 Total Protein Albumin Triglycerides Total Cholesterol LDL Cholesterol Direct HDL Cholesterol Lipase Urine Color Yellow Urine Clarity Clear Urine pH 5.5 Ur Specific Edwards 1.015 Urine Protein Negative Urine Ketones 15 H Urine Blood Negative Urine Nitrite Negative Urine Bilirubin Negative Urine Urobilinogen 0.2 Ur Leukocyte Esterase Negative Urine Glucose 500 H 01/25/18 01/25/18 11:22 11:15 WBC RBC Hgb Hct MCV MCH MCHC RDW Plt Count MPV Immature Gran % Neutrophils % Lymphocytes % Monocytes % Eosinophils % Basophils % Absolute Neutrophils Absolute Lymphocytes Absolute Monocytes Absolute Eosinophils Absolute Basophils D-Dimer 627 H Sodium 134 L Potassium 4.2 Chloride 97 L Carbon Dioxide 24.5 Anion Gap 12.5 H BUN 21 H Creatinine 0.92 Estimated GFR/1.73 m2 >= 60.00 Glucose 342 H Hemoglobin A1c Calcium 9.3 Total Bilirubin 0.5 AST 16 ALT 35 Alkaline Phosphatase 151 H Troponin I 0.02 Total Protein 7.8 Albumin 3.6 Triglycerides Total Cholesterol LDL Cholesterol Direct HDL Cholesterol Lipase 144 Urine Color Urine Clarity Urine pH Ur Specific Edwards Urine Protein Urine Ketones Urine Blood Urine Nitrite Urine Bilirubin Urine Urobilinogen Ur Leukocyte Esterase Urine Glucose PFSH 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) Non compliance w medication regimen (Acute) CAD (coronary artery disease) DM (diabetes mellitus) Essential hypertension GERD (gastroesophageal reflux disease) History of colon polyps Hyperlipidemia Family History Mother Essential hypertension Personal history of malignant neoplasm Myocardial infarction Father Personal history of malignant neoplasm Brother Myocardial infarction Colonoscopy (05/23/15) Colonoscopy - MAC EGD - MAC EGD w/ BX (06/08/16) Repair of inguinal hernia Rotator Cuff Repair (09/02/14) Stent placement Family History Mother Essential hypertension Personal history of malignant neoplasm Myocardial infarction Father Personal history of malignant neoplasm Brother Myocardial infarction Medical History 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) Non compliance w medication regimen (Acute) CAD (coronary artery disease) DM (diabetes mellitus) Essential hypertension GERD (gastroesophageal reflux disease) History of colon polyps Hyperlipidemia Social History adopted: No caregiver/support person: No foster care: No household members: none housing: house lives independently: Yes number of children: 0 penitentiary: No current occupational status: disabled pets and animals: Yes leisure activities: hunting and fishing Hx Recent Travel: No well-balanced diet: rarely or never daily servings fruits/ve-1 daily servings of milk/calcium: 0-1 eating out: rarely or never reads food labels: seldom or never Smoking/Tobacco Use Status: Never Surgical History Colonoscopy (05/23/15) Colonoscopy - MAC EGD - MAC EGD w/ BX (06/08/16) Repair of inguinal hernia Rotator Cuff Repair (09/02/14) Stent placement Social History adopted: No caregiver/support person: No foster care: No household members: none housing: house lives independently: Yes number of children: 0 penitentiary: No current occupational status: disabled pets and animals: Yes leisure activities: hunting and fishing Hx Recent Travel: No well-balanced diet: rarely or never daily servings fruits/ve-1 daily servings of milk/calcium: 0-1 eating out: rarely or never reads food labels: seldom or never Smoking/Tobacco Use Status: Never
[2018-01-26 12:14] LABS: Troponin I 0.02 ng/mL (0.00-0.06)
--- NOTE | 2018-01-26 12:47 | PDOC.CMDIS ---
- If Service Date Differs Date of service: 01/26/18 Time of Service: 12:47 LACE Index Scoring Tool - Questions: Length of Stay (in days): 2 Acuity (Admit via E.D.?): Yes Comorbidities: Diabetes w/o Complication E.D. Visits: 1 - Answers: Total Score: 7 Risk of Readmission: Low Risk Care Management Discharge Reason for Hospitalization: Chest pain. Discharge Plan: Manuel will discharge home when medically ready per MD. Anticipate patient will discharge with new referral to [facility] for supportive community resources, outpatient stress test, and follow up appointment with his PCP. Manuel will transport via private vehicle with his niece, Rivka. Patient/Family Education Needs: Discharge education, any limitations, and follow up plan of care. Ask Me Three discussion.
--- NOTE | 2018-01-26 12:53 | CMDISCH_ITS ---
- If Service Date Differs Date of service: 01/26/18 Time of Service: 12:47 LACE Index Scoring Tool - Questions: Length of Stay (in days): 2 Acuity (Admit via E.D.?): Yes Comorbidities: Diabetes w/o Complication E.D. Visits: 1 - Answers: Total Score: 7 Risk of Readmission: Low Risk Care Management Discharge Reason for Hospitalization: Chest pain. Discharge Plan: Manuel will discharge home when medically ready per MD. Anticipate patient will discharge with new referral to [facility] for supportive community resources, outpatient stress test, and follow up appointment with his PCP. Manuel will transport via private vehicle with his niece, Rivka. Patient/Family Education Needs: Discharge education, any limitations, and follow up plan of care. Ask Me Three discussion.
== END 2018-01-26 14:30 | disposition home or self-care (01) ==
LOC: ER 19:04 → ICU 01-26 07:07
PROVIDERS: Admitting Provider Internal Medicine; Emergency Provider Student in an Organized Health Care Education/Training Program; PCP Nurse Practitioner; Visit Provider Internal Medicine
DX: R07.9 Chest pain, unspecified (principal); I10 Essential (primary) hypertension; I25.10 Atherosclerotic heart disease of native coronary artery without angina pectoris; E11.65 Type 2 diabetes mellitus with hyperglycemia; Z95.5 Presence of coronary angioplasty implant and graft; Z86.73 Personal history of transient ischemic attack (TIA), and cerebral infarction without residual deficits; E78.5 Hyperlipidemia, unspecified; Z79.4 Long term (current) use of insulin; Z91.14 Patient's other noncompliance with medication regimen; Z23 Encounter for immunization
CPT/HCPCS: 36415; 36416; 71275; 74177; 80053; 80061; 82962; 83690; 83721; 93005; 93306; 96360; 96361; 99220; 99239; 99285; J1650; 71046; 76700; 81003; 83036; 84484; 85025; 85379; 93010; 99217; G0378; J3490

== ENCOUNTER 2018-02-06 00:25 | Outpatient (CLI) | payer MEDICARE, MEDICAID, SELFPAY ==
--- NOTE | 2018-02-06 09:15 | DI.CT_ITS ---
SYMPTOMS/DIAGNOSIS: HEADACHE, MEMORY CHANGE, H/O CVA AND TIA, AMNESIA, R41.3, R51, Z86.[address]: Noncontrast cranial CT was performed. There is moderate generalized cerebral atrophy. There is an apparent arachnoid cyst versus cisterna magna of the posterior fossa, no change from 04/16/16. There are small areas of decreased attenuation in periventricular white matter bilaterally consistent with old infarctions. No evidence of acute intracranial hemorrhage, mass effect or midline shift. No significant interval change in appearance in comparison with 04/16/16 examination except that one of the small apparent periventricular white matter infarcts may be new since that time. CONCLUSION: No evidence of acute intracranial process. Partial soft tissue and calcific attenuation opacification of right sphenoid sinus noted; this was also present on previous examination and is consistent with chronic sinusitis.
== END 2018-02-06 00:45 ==
PROVIDERS: PCP Nurse Practitioner; Visit Provider Nurse Practitioner
DX: R51 Headache (principal); R41.3 Other amnesia; Z86.73 Personal history of transient ischemic attack (TIA), and cerebral infarction without residual deficits; J32.9 Chronic sinusitis, unspecified
CPT/HCPCS: 70450

== ENCOUNTER 2018-05-30 12:04 | Outpatient (REF) | payer MEDICARE, MEDICAID, SELFPAY ==
[2018-05-30 19:25] LABS: HCT 39.2 % (40.0-50.0); HGB 13.1 g/dL (13.5-17.5); Mean Corp. HGB Concentration 33.4 g/dL (32.0-36.0); Mean Corpuscular Hemoglobin 30.5 pg (27.0-33.0); Mean Corpuscular Volume 91.2 fL (80-95); Platelet Count 217 x1000/uL (130-400); RBC Distribution Width 13.7 % (11.8-14.1); White Blood Cell Count 6.97 k/cumm (4.4-10.8)
[2018-05-30 19:42] LABS: ALT 36 U/L (12-78); AST 18 U/L (15-37); Albumin 3.6 g/dL (3.4-5.0); Alkaline Phosphatase 128 U/L (46-116); Anion Gap 10.9 mmol/L (3-11); BUN 18 mg/dL (7-18); Bilirubin, Total 0.5 mg/dL (0.2-1.0); CO2 24.1 mmol/L (21.0-32.0); CREATININE 0.94 mg/dL (0.70-1.30); Calcium 8.9 mg/dL (8.5-10.1); Chloride 97 mmol/L (98-107); Glucose 448 mg/dL (70-100); Potassium 4.6 mmol/L (3.5-5.1); Sodium 132 mmol/L (136-145); Total Protein 6.9 g/dL (6.4-8.2)
== END 2018-05-30 12:24 ==
LOC: LBN 12:04
PROVIDERS: PCP Nurse Practitioner; Visit Provider Nurse Practitioner
DX: I10 Essential (primary) hypertension (principal); E11.65 Type 2 diabetes mellitus with hyperglycemia
CPT/HCPCS: 80053; 85027

== ENCOUNTER → 2018-05-31 14:56 | Outpatient (BNVA) | payer MEDICARE, MEDICAID, SELFPAY | PROVIDERS: PCP Nurse Practitioner; Visit Provider Nurse Practitioner Gerontology | DX: R10.2 Pelvic and perineal pain (principal) | CPT/HCPCS: 99213 ==

== ENCOUNTER → 2018-06-07 11:20 | Outpatient (BNVA) | payer MEDICARE, MEDICAID, SELFPAY | PROVIDERS: PCP Nurse Practitioner; Visit Provider Nurse Practitioner Gerontology | DX: R10.2 Pelvic and perineal pain (principal); Z98.890 Other specified postprocedural states; E11.9 Type 2 diabetes mellitus without complications; Z79.84 Long term (current) use of oral hypoglycemic drugs | CPT/HCPCS: 99213 ==

== ENCOUNTER → 2018-06-14 09:27 | Outpatient (BNVA) | payer MEDICARE, MEDICAID, SELFPAY | PROVIDERS: PCP Nurse Practitioner; Visit Provider Nurse Practitioner Gerontology | DX: R10.2 Pelvic and perineal pain (principal); Z98.890 Other specified postprocedural states; E11.9 Type 2 diabetes mellitus without complications; I10 Essential (primary) hypertension | CPT/HCPCS: 99213; 99214 ==

== ENCOUNTER → 2018-06-27 13:27 | Outpatient (BNVA) | payer MEDICARE, MEDICAID, SELFPAY | PROVIDERS: PCP Nurse Practitioner; Referring Provider Nurse Practitioner; Visit Provider Surgery | DX: R69 Illness, unspecified (principal) | CPT/HCPCS: 99213 ==

== ENCOUNTER → 2018-06-27 14:03 | Outpatient (BNVA) | payer MEDICARE, MEDICAID, SELFPAY | PROVIDERS: PCP Nurse Practitioner; Visit Provider Nurse Practitioner Gerontology | DX: R10.31 Right lower quadrant pain (principal); Z98.890 Other specified postprocedural states; R10.2 Pelvic and perineal pain | CPT/HCPCS: 99213; 96372 ==

== ENCOUNTER → 2019-01-18 08:07 | Outpatient (BNVA) | payer MEDICARE, MEDICAID, SELFPAY | PROVIDERS: PCP Nurse Practitioner; Referring Provider Nurse Practitioner; Visit Provider Nurse Practitioner Gerontology | DX: R10.2 Pelvic and perineal pain (principal); E11.9 Type 2 diabetes mellitus without complications; I10 Essential (primary) hypertension | CPT/HCPCS: 20552; 99213; J2930 ==

== ENCOUNTER → 2019-02-02 10:56 | Outpatient (BNVA) | payer MEDICARE, MEDICAID, SELFPAY | PROVIDERS: PCP Nurse Practitioner; Referring Provider Nurse Practitioner; Visit Provider Urology | DX: R10.2 Pelvic and perineal pain (principal); E11.9 Type 2 diabetes mellitus without complications; I10 Essential (primary) hypertension | CPT/HCPCS: 20552; 99213 ==

== ENCOUNTER → 2019-09-14 08:10 | Outpatient (BNVA) | payer MEDICARE, MEDICAID, SELFPAY | PROVIDERS: PCP Nurse Practitioner; Referring Provider Nurse Practitioner; Visit Provider Urology | DX: R10.31 Right lower quadrant pain (principal); R10.32 Left lower quadrant pain; E11.9 Type 2 diabetes mellitus without complications | CPT/HCPCS: 20552; 99213 ==

== ENCOUNTER 2019-10-02 11:06 | Outpatient (CLI) | payer MEDICARE, MEDICAID, SELFPAY ==
--- NOTE | 2019-10-02 10:30 | DI.RAD_ITS ---
EXAM: XR SHOULDER RT COMPLETE 2+V CLINICAL HISTORY: pain. TECHNIQUE: 2D digital imaging was performed. COMPARISON: CR XR SHOULDER LT COMPLETE 2+V from 10/02/2019 FINDINGS: There has been previous resection of the distal clavicle. There are metallic anchors in the humeral head related to previous rotator cuff repair. The humeral head appears high riding which could indic ate a chronic rotator cuff tear. There is spurring at the undersurface of the acromion and rim of th e glenoid. The glenohumeral joint is well maintained. IMPRESSION: Postsurgical and degenerative changes. DATA REPOSITORY: RADIATION DOSE DELIVERED:
--- NOTE | 2019-10-02 10:30 | DI.RAD_ITS ---
EXAM: XR SHOULDER LT COMPLETE 2+V CLINICAL HISTORY: pain. TECHNIQUE: 2D digital imaging was performed. COMPARISON: MR MRI R UPPER JOINT WO CONT from 06/24/2014 FINDINGS: BONES: No acute fracture is present. No bony destructive lesion is seen. JOINTS: No dislocation present. There is spurring at the AC joint and glenohumeral joint as well as greater and lesser tuberosities. SOFT TISSUE: Normal. IMPRESSION: [id number] degenerative changes. DATA REPOSITORY: RADIATION DOSE DELIVERED:
== END 2019-10-02 11:26 ==
PROVIDERS: PCP Nurse Practitioner; Referring Provider Nurse Practitioner; Visit Provider Orthopaedic Surgery
DX: M19.011 Primary osteoarthritis, right shoulder (principal); M19.012 Primary osteoarthritis, left shoulder; M77.8 Other enthesopathies, not elsewhere classified; M25.511 Pain in right shoulder; M25.512 Pain in left shoulder
CPT/HCPCS: 20610; 99214; 73030; J1040

== ENCOUNTER 2020-02-13 11:19 | Outpatient (REF) | payer MEDICARE, SELFPAY ==
[2020-02-13 11:55] LABS: Bilirubin Negative (Negative); Blood Negative (Negative); Clarity Clear (Clear); Glucose >=1000 mg/dL (Negative); Ketones Trace mg/dL (Negative); Leukocyte Esterase Negative (Negative); Nitrite Negative (Negative); Urobilinogen 0.2 EU/dL (Up TO 0.2)
== END 2020-02-13 11:39 ==
LOC: LBN 11:19
PROVIDERS: PCP Nurse Practitioner; Visit Provider Nurse Practitioner
DX: R10.9 Unspecified abdominal pain (principal); R82.998 Other abnormal findings in urine
CPT/HCPCS: 81003; 87086

== ENCOUNTER 2020-04-03 18:34 | Outpatient (REF) | payer MEDICARE, SELFPAY ==
[2020-04-03 19:04] LABS: Bilirubin Negative (Negative); Blood Negative (Negative); Clarity Clear (Clear); Glucose 500 mg/dL (Negative); Ketones Trace mg/dL (Negative); Leukocyte Esterase Negative (Negative); Nitrite Negative (Negative); Urobilinogen 0.2 EU/dL (Up TO 0.2); pH 5.5 (5-8)
[2020-04-03 19:37] LABS: C Diff PCR Negative (Negative)
[2020-04-05 11:19] LABS: Campylobacter PCR Negative (Negative); Salmonella PCR Negative (Negative); Shiga Toxin PCR Negative (Negative); Shigella/Enteroinvasive Ecoli Negative (Negative)
== END 2020-04-03 18:35 | disposition home or self-care (01) ==
LOC: LBN 18:34
PROVIDERS: PCP Nurse Practitioner; Visit Provider Nurse Practitioner
DX: R82.90 Unspecified abnormal findings in urine (principal); R19.5 Other fecal abnormalities
CPT/HCPCS: 87493; 87505; 81003; 87086

== ENCOUNTER 2020-09-25 15:38 | Emergency (ER) | payer MEDICARE, MEDICAID, SELFPAY ==
[2020-09-25 15:57] VITALS: BP 123/67; PULSE 84; RESP 16; TEMP 37.2; O2SAT 96
--- NOTE | 2020-09-25 16:00 | RT.EKG_ITS ---
APPROVED REPORT Exam: Resting ECG Reason for Exam: epigastric pain Patient Location: E HR:76 bpm ECG Measurements Heart Rate 76 AXIS HI 155 P -47 QRSd 90 QRS -61 QT 382 T 9 QTc 430 Conclusion Ectopic atrial rhythm...abnormal P axis, normal rate Inferior infarct, old...Q >35mS, II III aVF. No STEMI. I have reviewed and interpreted ECG and agree with software generated interpretation.
[2020-09-25 16:35] LABS: Abs Immature Grans 0.02 10^3/uL (0.0-0.06); Absolute Basophil Count 0.06 10^3/uL (0.0-0.2); Absolute Eosinophil Count 0.02 10^3/uL (0.0-0.7); Absolute Lymphocyte Count 1.67 10^3/uL (1.2-3.4); Absolute Monocyte Count 0.65 10^3/uL (0.1-0.8); Absolute Neutrophil Count 6.34 10^3/uL (1.2-6.7); Basophils % 0.7; Eosinophils % 0.2; HCT 42.9 % (40.0-50.0); HGB 14.9 g/dL (13.5-17.5); Immature Grans % 0.2; Lymphocytes % 19.1; MCH 30.7 pg (27.0-33.0); MCHC 34.7 % (32.0-36.0); MCV 88.5 fL (80-95); Monocytes % 7.4; Neutrophils % 72.4; Nucleated RBC 0 %; Platelet Count 230 10^3/uL (130-400); RBC 4.85 10^6/uL (4.36-5.78); RDW 13.2 % (11.8-14.1); WBC 8.76 10^3/uL (4.4-10.8)
--- NOTE | 2020-09-25 16:36 | ED.GENADUL_ITS ---
Discharge Plan Disposition Patient Disposition: HOME Condition: Stable Discharge Details Clinical Impression: GERD (gastroesophageal reflux disease) Primary Care Provider: Eleonora Ramirez ED Provider: Twyla Mathew Home Meds and New Rx's Prescriptions: New sucralfate [Carafate] 1 gram tablet 1 g PO QACHS Qty: 120 RF: 0 Continued gabapentin 300 mg capsule 300 mg PO QHS Qty: 30 RF: 1 Changed omeprazole 40 mg capsule,delayed release(DR/EC) 40 mg PO BID Qty: 90 RF: 3 Discharge Instructions Instructions: GERD (Gastroesophageal Reflux Disease) (ED) Additional Instructions: increase your omeprazole to 2 times daily add carafate before meals and bedtime Referrals: Eleonora Ramirez, [employer]OM[employer]ER [Primary Care Provider] - Medical Decision Making presents for evaluation of epigastric abdominal pain. routine abdominal evaluation, pain extends across upper abdomen. differentials included GERD, pancreatitis, gastric ulcer, obstruction. will order routine labs, CT scan abd/pelvis. all results are unremarkable. patient is given gi cocktail and IV protonix with resolution of symptoms. he is up and ambulatory unassisted, oriented and safe for discharge to home. Medical Records Medical records reviewed: Yes I reviewed the patient's medical records. Imaging Data Radiologic Study: Imaging: X-Ray Radiologist's impression: PROCEDURE INFORMATION: Exam: CT Abdomen And Pelvis With Contrast Exam date and time: 09/25/2020 6:09 PM Age: 74 years old Clinical indication: Other: Abdominal pain TECHNIQUE: Imaging protocol: Computed tomography of the abdomen and pelvis with contrast. Total images: 1221 Radiation optimization: All CT scans at this facility use at least one of these dose optimization techniques: automated exposure control; mA and/or kV adjustment per patient size (includes targeted exams where dose is matched to clinical indication); or iterative reconstruction. Contrast material: OMNIPAQUE 350; Contrast volume: 100 ml; Contrast route: INTRAVENOUS (IV); COMPARISON: MRI - PELVIS WO CONTRAST 09/16/2017 3:12 PM FINDINGS: Liver: Normal. No mass. Gallbladder and bile ducts: Normal. No calcified stones. No ductal dilation. Pancreas: Normal. No ductal dilation. Spleen: There is a calcified granuloma in the spleen. Adrenal glands: Normal. No mass. Kidneys and ureters: Normal. No hydronephrosis. Stomach and bowel: Unremarkable. No obstruction. No mucosal thickening. Appendix: No evidence of appendicitis. Intraperitoneal space: Unremarkable. No free air. No significant fluid collection. Vasculature: Unremarkable. No abdominal aortic aneurysm. Lymph nodes: Unremarkable. No enlarged lymph nodes. Urinary bladder: Unremarkable as visualized. Reproductive: The prostate gland is enlarged with impression on the bladder base. Bones/joints: Unremarkable. No acute fracture. Soft tissues: Unremarkable. IMPRESSION: 1. No acute disease in abdomen or pelvis. 2. Prostatomegaly. Dictated and Authenticated by: Shantell Romero MD. Lab Data Lab results reviewed: Yes I reviewed the patient's lab results. Labs: Laboratory Tests Range/Units 09/25/20 09/25/20 16:29 17:05 WBC (4.4-10.8) 10^3/uL 8.76 RBC (4.36-5.78) 10^6/uL 4.85 Hgb (13.5-17.5) g/dL 14.9 Hct (40.0-50.0) % 42.9 MCV (80-95) fL 88.5 MCH (27.0-33.0) pg 30.7 MCHC (32.0-36.0) % 34.7 RDW (11.8-14.1) % 13.2 Plt Count (130-400) 10^3/uL 230 MPV (8.0-11.0) fL 10.0 Immature Gran % 0.2 Neutrophils % 72.4 Lymphocytes % 19.1 Monocytes % 7.4 Eosinophils % 0.2 Basophils % 0.7 Nucleated RBC % % 0 Absolute Neutrophils (1.2-6.7) 10^3/uL 6.34 Absolute Lymphocytes (1.2-3.4) 10^3/uL 1.67 Absolute Monocytes (0.1-0.8) 10^3/uL 0.65 Absolute Eosinophils (0.0-0.7) 10^3/uL 0.02 Absolute Basophils (0.0-0.2) 10^3/uL 0.06 Sodium (136-145) mmol/L 133 L Potassium (3.5-5.1) mmol/L 4.1 Chloride (98-107) mmol/L 100 Carbon Dioxide (21.0-32.0) mmol/L 24.7 Anion Gap (3-11) mmol/L 8.3 BUN (7-18) mg/dL 20 H Creatinine (0.70-1.30) mg/dL 0.9 Estimated GFR/1.73 m2 (mL/min/1.73m2) >= 60.00 Glucose (74-106) mg/dL 261 H Calcium (8.5-10.1) mg/dL 8.8 Magnesium (1.8-2.4) mg/dL 1.9 Total Bilirubin (0.2-1.0) mg/dL 0.7 AST (15-37) U/L 10 L ALT (16-63) U/L 18 Alkaline Phosphatase (46-116) U/L 90 Troponin I (<0.06) ng/mL < 0.05 Total Protein (6.4-8.2) g/dL 7.1 Albumin (3.4-5.0) g/dL 3.3 L Lipase (73-393) U/L 79 HPI General Date/Time Provider Initiated Documentation: 09/25/20 16:07 . Information obtained by: patient, RN/MD and old records reviewed . HPI Narrative: This is a 74 year old male brought in by his palliative care provider for evaluation of abdominal pain. he states he is eating and drinking well, denies fevers, dark or tarry stools. states the pain is consistent with his acid reflux and has been constant for 2 weeks. he states eating does not worsen the pain. he reports a 90 pound weight loss over 6 months. there is concern about him being able to safely return home, he lives alone, has meals on wheels, denies home health services but is open to it. followed by Dr Mcmillan Related Data Home Medications Medication Instructions Recorded Confirmed gabapentin 300 mg capsule 300 mg PO QHS #30 cap 09/22/20 09/25/20 omeprazole 40 mg PO BID #90 cap 09/25/20 09/25/20 sucralfate [Carafate] 1 g PO QACHS #120 tab 09/25/20 Previous Rx's Medication Instructions Recorded gabapentin 300 mg capsule 300 mg PO QHS #30 cap 09/22/20 omeprazole 40 mg PO BID #90 cap 09/25/20 sucralfate [Carafate] 1 g PO QACHS #120 tab 09/25/20 Allergies Allergy/AdvReac Type Severity Reaction Status Date / Time cayenne Allergy Severe Swelling/Ed Verified 09/25/20 16:01 gigi No Known Drug Allergies Allergy Verified 09/25/20 16:01 General Stated Complaint: Abd Prob ADIA: 2 Review of Systems Constitutional Constitutional: Denies fever(s) and Reports weight loss (90 pounds over 6 months, unintentional) ENT Ears, Nose, Mouth, and Throat: Denies dysphagia and Denies vertigo Cardiovascular Cardiovascular: Denies chest pain and Denies dyspnea Respiratory Respiratory: Denies cough and Denies dyspnea Gastrointestinal Gastrointestinal: Reports abdominal pain, Denies melena, Denies hematochezia, Denies change in bowel habits, Denies change in stool character, Denies constipation, Denies dysphagia, Reports heartburn, Denies diarrhea, Denies nausea and Denies vomiting Genitourinary Genitourinary: Denies difficulty urinating Musculoskeletal Musculoskeletal: Denies back pain Integumentary/Breasts Skin/Breast: Denies rash Neurologic Neurologic: Denies confusion and Denies vertigo Psychiatric Psychiatric: Denies confusion Hematologic/Lymphatic Hematologic/Lymphatic: Denies easy bleeding and Denies easy bruising [facility] Medical History (Updated 09/25/20 @ 21:16 by Twyla Mathew NP) Abdominal pain in male Adult failure to thrive Ambulates with cane Bilateral groin pain CAD (coronary artery disease) Chronic fatigue Chronic pain limiting his activities refuses pain medication except overused NSAIDs Diarrhea DM (diabetes mellitus) DNI (do not intubate) DNR (do not resuscitate) Eccentric personality Encounter for hospice care discussion Essential hypertension Fatty liver Frequent falls Generalized weakness GERD (gastroesophageal reflux disease) History of colon polyps Hyperlipidemia Insect bites Lonely Mild cataract (05/29/20) [facility] Non compliance with medical treatment NSAID induced gastritis has been taking naproxen in excess Osteoarthritis Palliative care patient Physician orders for life-sustaining treatment (POLST) form indicates patient wish for [id number]-yns-[id number] status made two copies: original on his refrigerator, another to be put into [facility] system DNR/DNI, no feeding tube, no transfer, no IVF, [employer] Poor housing broken front window house full of trash/garbage worse and worse each visit lots of fall hazards Poor personal hygiene no running water Protein calorie malnutrition Rib fractures Shoulder pain Tendonitis of left rotator cuff Unintentional weight loss Surgical History Colonoscopy (05/23/15) Silverio John, DO Colonoscopy - MAC EGD - MAC EGD w/ BX (06/08/16) [facility] Repair of inguinal hernia right Rotator Cuff Repair (09/02/14) Dr. Zacarias Repair of chronic full-thickness tear rotator cuff on the right. Stent placement 2008 Cath and stents Family History Mother , age 90 Essential hypertension Personal history of malignant neoplasm OVARIAN Myocardial infarction Father , lUNG CA at age 85. Personal history of malignant neoplasm Brother , age65 Myocardial infarction Brother , age 70 Heart disease Social History (Updated 09/25/20 @ 19:51 by Bobbi Mcmillan MD) Smoking/Tobacco Use Status: Never Smoking risk assessment performed?: Yes Alcohol Intake: never Drug use: Never Adopted: No Caregiver/Support person: No Foster care: No Household members: none Housing: house Number of Children: 0 Education Level: high school Do you need help understanding health information?: Always current occupation: retired Pets and animals: No Sexually active: No What is your relationship status?: never How often do you talk on the phone with friends or family?: never How often do you get together with friends or relatives?: never Panel score (0-1 are the most socially isolated patients): 0 What type of physical activity do you participate in: walking, assisted ambulation and sedentary lifestyle Duration: < 15 minutes/day Frequency: does not exercise Special serge needs: No Agree to transfusion: No Seatbelt use: sometimes Water heater temp set <120 deg: No Working smoke detector in home: No Fire extinguisher in home: No Carbon monox detector in home: No Firearms in home: Yes (says he has 5 guns ) Firearms unloaded and locked: No Do you feel safe at home: Yes Do you feel safe in your relationship?: Yes Additional Social history: lives alone. has outlived all his family. feels he should have when he was 50. Not motivated to take medications. Stopped insulin. Used to be active outside the house. Until summer 2019 always maintained his gardens--pain too great to do his usual work. Lawn unmoved and birds/chipmunks not fed as usual at September 2020 visit. Sold his dog. Pale. Not going outside. Loves going outside. Admits that he cannot care for himself. I'm too weak. Exam Const General: cooperative, comfortable, frail appearing and ill appearing chronically Nutritional Appearance: average body habitus Orientation: alert, awake and oriented x3 HENMT Head: normal to inspection, normocephalic and atraumatic Mouth: oral mucosae normal Chest Chest: normal inspection of the chest Resp Effort & Inspection: normal respiratory effort Cardio Rate: regular rate Rhythm: regular rhythm GI Inspection: normal to inspection Palpation: soft Auscultation: normal bowel sounds Skin Lesions: no lesions Rashes: no rashes Neuro General: patient alert, patient awake, patient oriented x3 and no focal motor deficits Extrem General: normal to inspection, full ROM and no pedal edema Course Vital Signs Vital signs: Vital Signs Temperature 37.2 C 09/25/20 15:57 Pulse 84 09/25/20 15:57 Respiratory Rate 16 09/25/20 15:57 Blood Pressure 123/67 09/25/20 15:57 Pulse Oximetry 96 09/25/20 15:57 Temperature 37.2 C 09/25/20 15:57 Temperature Source Skin 09/25/20 15:57 Pulse 84 09/25/20 15:57 Respiratory Rate 16 09/25/20 15:57 Respiratory Effort Non-Labored 09/25/20 15:57 Blood Pressure 123/67 09/25/20 15:57 Blood Pressure Position Sitting 09/25/20 15:57 Pulse Oximetry 96 09/25/20 15:57 Oxygen Delivery Method Room Air 09/25/20 15:57 Oxygen Flow Rate 0 09/25/20 15:57 Pain Level 5 09/25/20 15:57
[2020-09-25 17:29] LABS: ALT 18 U/L (16-63); AST 10 U/L (15-37); Albumin 3.3 g/dL (3.4-5.0); Alkaline Phosphatase 90 U/L (46-116); Anion Gap 8.3 mmol/L (3-11); BUN 20 mg/dL (7-18); Bilirubin, Total 0.7 mg/dL (0.2-1.0); CO2 24.7 mmol/L (21.0-32.0); CREATININE 0.9 mg/dL (0.70-1.30); Calcium 8.8 mg/dL (8.5-10.1); Chloride 100 mmol/L (98-107); Glucose 261 mg/dL (74-106); Lipase 79 U/L (73-393); Magnesium 1.9 mg/dL (1.8-2.4); Potassium 4.1 mmol/L (3.5-5.1); Sodium 133 mmol/L (136-145); Total Protein 7.1 g/dL (6.4-8.2)
[2020-09-25 17:50] LABS: Troponin I < 0.05 ng/mL (<0.06)
[2020-09-25] MEDS: Normal Saline - Diluent 50 ML VIAL IV (18:55)
[2020-09-25] MEDS: Omnipaque 350 MG/ML 100 ML BTL IJ (18:55)
--- NOTE | 2020-09-25 18:55 | DI.CT_ITS ---
Exam(s) CT ABDOMEN PELVIS W EXAM: CT ABDOMEN PELVIS W CLINICAL HISTORY: abdominal pain TECHNIQUE: Imaging Protocol: Axial computed tomography images with coronal and sagittal reformatted images were created and reviewed CONTRAST MATERIAL: Intravenous: Omnipaque 350 Contrast volume:100 mL Oral: No FINDINGS: The examination is limited due to patient motion artifact. ABDOMEN: Lung Bases: Normal where visualized. Mild cardiomegaly. Liver: Normal density. No measurable mass. Portal, Superior Mesenteric, and Splenic Veins: Unremarkable. Gallbladder and Biliary Tract: No radiodense calculus or dilation. Pancreas: Normal density, no abnormal calcifications or inflammatory process. Spleen: Normal. Stable splenic calcification. Adrenals: No masses seen. Kidneys: Normal size, contour and axis. No radiodense stones or obstructive uropathy. There are tiny hypodensities in the left kidney. They are too small for further characterization, but likely reflec t small cysts. Abdominal Aorta: Abdominal portion non-dilated. Moderate atherosclerosis. Bowel: No obstruction or bowel wall thickening. Appendix is unremarkable. Diverticulosis of the colon , but no evidence of acute diverticulitis. Peritoneal Cavity: No ascites, collection or mesenteric inflammatory response. No free air. Lymph Nodes: Within normal limits. Bones: Within normal limits for the patient's age. Soft Tissues: Unremarkable. PELVIS: Bladder: Symmetric distention, no gross wall thickening. Reproductive Organs: Enlarged prostate gland. Lymph Nodes: Within normal limits. Bones: Within normal limits for the patient's age. IMPRESSION: No acute abdominal or pelvic process. RADIATION DOSE DELIVERED: 749.85mGy.cm Total DLP DATA REPOSITORY: All CT scans at this facility are submitted to the National Radiology Data Registry (NRDR) Dose Index Registry (DIR) with the [employer] ([employer]). RADIATION OPTIMIZATION: All CT scans at this facility use at least one of these dose optimization te chniques: automated exposure control; mA and/or kV adjustment per patient size (includes targeted exa ms where dose is matched to clinical indication); or iterative reconstruction.
[2020-09-25] MEDS: Normal Saline Flush 10 ML SYR IVP (18:56)
--- NOTE | 2020-09-25 19:20 | DI.VRAD_ITS ---
PROCEDURE INFORMATION: Exam: CT Abdomen And Pelvis With Contrast Exam date and time: 09/25/2020 6:09 PM Age: 74 years old Clinical indication: Other: Abdominal pain TECHNIQUE: Imaging protocol: Computed tomography of the abdomen and pelvis with contrast. Total images: 1221 Radiation optimization: All CT scans at this facility use at least one of these dose optimization techniques: automated exposure control; mA and/or kV adjustment per patient size (includes targeted exams where dose is matched to clinical indication); or iterative reconstruction. Contrast material: OMNIPAQUE 350; Contrast volume: 100 ml; Contrast route: INTRAVENOUS (IV); COMPARISON: MRI - PELVIS WO CONTRAST 09/16/2017 3:12 PM FINDINGS: Liver: Normal. No mass. Gallbladder and bile ducts: Normal. No calcified stones. No ductal dilation. Pancreas: Normal. No ductal dilation. Spleen: There is a calcified granuloma in the spleen. Adrenal glands: Normal. No mass. Kidneys and ureters: Normal. No hydronephrosis. Stomach and bowel: Unremarkable. No obstruction. No mucosal thickening. Appendix: No evidence of appendicitis. Intraperitoneal space: Unremarkable. No free air. No significant fluid collection. Vasculature: Unremarkable. No abdominal aortic aneurysm. Lymph nodes: Unremarkable. No enlarged lymph nodes. Urinary bladder: Unremarkable as visualized. Reproductive: The prostate gland is enlarged with impression on the bladder base. Bones/joints: Unremarkable. No acute fracture. Soft tissues: Unremarkable. IMPRESSION: 1. No acute disease in abdomen or pelvis. 2. Prostatomegaly. Dictated and Authenticated by: Shantell Romero MD. Ordering:ANGELINA Wakefield MD
--- NOTE | 2020-09-25 20:33 | NUR.NOTE ---
Patient walked in the hallways with no assistance. Patient denied any issues while walking.Nursing Note:
[2020-09-25 21:30] VITALS: BP 158/83; PULSE 66; RESP 18; TEMP 36.6; O2SAT 97
--- NOTE | 2020-09-25 21:32 | NUR.NOTE ---
[facility] called for patient transport back to [facility] Note:
== END 2020-09-25 21:44 | disposition home or self-care (01) ==
PROVIDERS: Physician Assistant; Emergency Provider Nurse Practitioner Acute Care; PCP Nurse Practitioner
DX: K21.9 Gastro-esophageal reflux disease without esophagitis (principal); E11.9 Type 2 diabetes mellitus without complications
CPT/HCPCS: 36415; 80053; 83690; 93005; 99285; 74177; 83735; 84484; 85025; 93010; 99239; J3490

== ENCOUNTER 2020-11-29 09:24 | Inpatient (IN) | payer OTHER, SELFPAY ==
[2020-11-29 12:29] LABS: Source Nasal/Nares
[2020-11-29 12:34] VITALS: BP 151/77; PULSE 67; RESP 16; TEMP 36.5; O2SAT 99
[2020-11-29 12:43] VITALS: BP 151/77; PULSE 67; RESP 16; TEMP 36.5; O2SAT 99
[2020-11-29 13:28] LABS: COVID-19 PCR Negative (Negative)
[2020-11-29 14:07] VITALS: BP 151/77; PULSE 67; RESP 16; TEMP 36.5; O2SAT 97
[2020-11-29] MEDS: MORPHine 1,000 MG in CADD PUMP CASSETTE 1 EACH, Normal Saline 80 ML 0.2 MG SC INF (14:29)
[2020-11-29 15:54] VITALS: BP 163/101; PULSE 68; RESP 18; TEMP 37.5; O2SAT 97
[2020-11-29 16:20] VITALS: BP 148/88; PULSE 54; RESP 20; TEMP 36.3; O2SAT 97
--- NOTE | 2020-11-29 18:57 | W.PM.HP.N ---
Date of service: 11/29/20 Time of Service: 11:57 Assessment and Plan Assessment and plan (1) Hospice care patient: Status: Acute Assessment and plan: On symptom management for now, for pain control. Expect approximately 7 day stay, with 5 days of respite once symptoms controlled. Manuel agrees to this plan. (2) Poor personal hygiene: Status: Chronic Assessment and plan: Manuel's primary nurse, Timmy, cleaned up Manuel soon after admission. Manuel's first shower in more than a year! (3) Generalized weakness: Status: Acute Assessment and plan: Manuel has been very sedentary at home. Legs are notably weaker. Walking unsteady. Linked to his poor nutritin and weight loss. Timmy reported that Manuel ate 100% of his lunch meal. Strength may improve during this stay. Will see. (4) Uncontrolled pain: Status: Acute Assessment and plan: Some improvement with 12 mcg fentanyl patch at home; changed to morphine SC pump at 2 mg/hr upon admission. Per Timmy, comfortable this evening. Will titrate up as needed. (5) Protein calorie malnutrition: Status: Acute Assessment and plan: His primary hospice diagnosis, with unexplained weight loss. Will see IF he can eat when food is prepared and brought to him. Could be functional. (6) Adult failure to thrive: Status: Acute (7) Poor housing: Status: Acute (8) Unintentional weight loss: Status: Chronic (9) Eccentric personality: Status: Chronic (10) Non compliance with medical treatment: Status: Chronic History of Present Illness History of Present Illness Chief Complaint: uncontrolled abd pain in hospice pt; weight loss Narrative: I saw Manuel yesterday at his home in [facility]. He was in severe pain, doubled over, short of breath with minimal exertion. We tried to admit him to [facility] then for symptom management but the only beds open were in the ICU. Manuel gets easily startled by noises and commotion. He would not do well in the ICU, so we waited to see if a medsur bed opened today, and it did. I drove to his house to bring him to the hospital, as he often refuses transport by the ambulance due to noise and confusion. He agreed to let me transport him. He also had agreed to try a fentanyl patch last night, which was in place at the time of his admission. He said this did not help his pain, but I could see that he could walk without doubling over today, and that he moaned, but not constantly. Unfortunately, he lives by himself, and had no family members who can help him with changing his fentanyl patch q 3 days. He often forgets things. He does not take his medications regularly. In September of this year, he was downing 10 regular aspirin at a time to treat his abdominal pain, he reported, but he says he has stopped this. When he was evaluated in the ER in September, I was shocked to see that his labs were wnl and his CT scan, considered subpar due to motion artifact, did not show any occult malignancy. He continues to lose weight at a rate of 1-2 lbs per week. He was down to 160 on this admission, from 166 in September, and 206 about 18 mos ago. His admitting hospice diagnosis is protein-calories malnutrition with persisten unexplained weight loss. He does not want any kind of work up for this. He lives in very poor housing, by his own choice. He has no running water, intermittent electricity, and no heat for this winter. PHARMACY SERVICES REPRESENTATIVE from [facility] and PHARMACY SERVICES REPRESENTATIVE from Hospice have been working on these problems. He does have MOW daily. He says that he eats these meals, but he often does not, as is evident by is trash. He did tell me that recently he swallowed half a mouse that was in the rain water bucket he collects for drinking. He agreed to this hospice admission for symptom management. He has a history of leaving [place]; I hope he can be persuaded to stay for 7-10 days, first as symptom management, and then when better, for 5 nights of respite. Review of Systems Constitutional Constitutional: Reports daytime sleepiness, Reports fatigue, Denies fever(s), Reports lethargy, Reports malaise, Reports poor appetite, Reports weakness and Reports weight loss Eyes Eyes: Reports itchy eyes and Reports requires corrective lenses ENT Ears, Nose, Mouth, and Throat: Reports halitosis, Reports dysphagia and Reports dizziness Cardiovascular Cardiovascular: Denies chest pain, Reports lightheadedness, Reports dyspnea and Reports dyspnea on exertion Respiratory Respiratory: Denies cough, Reports dyspnea and Reports dyspnea on exertion Gastrointestinal Gastrointestinal: Reports abdominal pain, Denies melena, Denies hematochezia, Reports change in bowel habits, Reports change in stool character, Reports dysphagia, Reports early satiety, Reports heartburn, Reports diarrhea, Reports nausea and Reports vomiting Genitourinary Genitourinary: Reports oliguria and Reports difficulty urinating Musculoskeletal Musculoskeletal: Reports abnormal gait, Reports back pain, Reports atrophy, Reports muscle weakness and Reports stiffness Integumentary/Breasts Skin/Breast: Reports alopecia and Reports rash Neurologic Neurologic: Reports abnormal gait, Reports confusion, Reports dizziness, Reports memory loss and Reports weakness Psychiatric Psychiatric: Reports abnormal sleep pattern, Reports confusion, Reports depression, Reports difficulty concentrating, Reports anhedonia, Reports memory loss and Reports mood swings Endocrine Endocrine: Reports cold intolerance and Reports fatigue Hematologic/Lymphatic Hematologic/Lymphatic: Denies easy bleeding and Reports easy bruising Allergic/Immunologic Allergic/Immunologic: Reports itchy eyes [facility] Medical History (Updated 11/29/20 @ 19:23 by Bobbi Mcmillan MD) Abdominal pain in male Adult failure to thrive Ambulates with cane Bilateral groin pain CAD (coronary artery disease) Chronic fatigue Chronic pain limiting his activities refuses pain medication except overused NSAIDs Diarrhea DM (diabetes mellitus) DNI (do not intubate) DNR (do not resuscitate) Eccentric personality Encounter for hospice care discussion Essential hypertension Fatty liver Frequent falls Generalized weakness GERD (gastroesophageal reflux disease) History of colon polyps Hospice care patient Hyperlipidemia Insect bites Lonely Mild cataract (05/29/20) [facility] Non compliance with medical treatment NSAID induced gastritis has been taking naproxen in excess Osteoarthritis Palliative care patient Physician orders for life-sustaining treatment (POLST) form indicates patient wish for [id number] status made two copies: original on his refrigerator, another to be put into [facility] system DNR/DNI, no feeding tube, no transfer, no IVF, [employer]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 Zacarias Repair of chronic full-thickness tear rotator cuff on the right. Stent placement 2009 Cath and stents Family History Mother , age 90 Essential hypertension Personal history of malignant neoplasm OVARIAN Myocardial infarction Father , lUNG CA at age 85. 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; 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, per his report Pets and animals: No Sexually active: No Current gender identity: male What is your relationship status?: How often do you talk on the phone with friends or family?: never How often do you get together with friends or relatives?: never Do you belong to any clubs or organized social groups?: no Panel score (0-1 are the most socially isolated patients): 0 What type of physical activity do you participate in: walking, assisted ambulation and sedentary lifestyle Duration: < 15 minutes/day Frequency: does not exercise Special serge needs: No Agree to transfusion: No Seatbelt use: sometimes Water heater temp set <120 deg: No Working smoke detector in home: No Fire extinguisher in home: No Carbon monox detector in home: No Firearms in home: Yes (says he has 5 guns ) Firearms unloaded and locked: No Do you feel safe at home: No (today was first day that Manuel admitted he struggles to care for himself) Do you feel safe in your relationship?: Yes Additional Social history: lives alone. has outlived all his family. feels he should have when he was 50. Not motivated to take medications. Stopped insulin. Used to be active outside the house. Until summer 2019 always maintained his gardens--pain too great to do his usual work. Lawn unmoved and birds/chipmunks not fed as usual at September 2020 visit. Sold his dog. Pale. Not going outside. Loves going outside. Admits that he cannot care for himself. I'm too weak. Has a niece who lives in [facility], does not want her involved in his care. Had a friend, Kylee, who lives down the road, who used to take him grocery shopping. They've had a falling out. Sees no one but hospice and [facility] and [facility] staff. Meds Allergies and Home Medications Allergies Allergy/AdvReac Type Severity Reaction Status Date / Time cayenne Allergy Severe Swelling/Ed Verified 09/25/20 16:01 gigi No Known Drug Allergies Allergy Verified 09/25/20 16:01 Home Medications Medication Instructions Recorded Confirmed Type gabapentin 300 mg capsule 300 mg PO QHS #30 cap 09/22/20 11/29/20 Rx omeprazole 40 mg PO BID #90 cap 09/25/20 11/29/20 Rx sucralfate [Carafate] 1 g PO QACHS #120 tab 09/25/20 11/29/20 Rx Exam Const General: cooperative, frail appearing and ill appearing chronically Nutritional Appearance: malnourished and thin Orientation: alert, awake and oriented x3 HENMT Head: normal to inspection, normocephalic and atraumatic Ears: hearing grossly normal bilaterally Face and sinus: normal facial exam, face symmetric and dry mucous membranes Teeth and gingiva: edentulous (some partial teeth left in gums), gingiva abnormal and poor dentition Eyes Conjunctivae: conjunctivae normal Sclera: sclerae normal Neck Neck: no lymphadenopathy Chest Chest: normal inspection of the chest Resp Effort & Inspection: normal respiratory effort and able to speak in complete sentences Auscultation: clear to auscultation bilaterally Cardio Jugular venous pressure: no JVD Rate: regular rate Rhythm: regular rhythm Heart Sounds: S1 normal and S2 normal GI Inspection: distended Palpation: soft, firm, guarding, hernia (possibly, unsure; right sided) and tender Auscultation: hypoactive bowel sounds Male General Exam: Yes normal external exam Skin General skin exam: pallor Lesions: no lesions Hair: male pattern alopecia Nails: dystrophic Neuro General: patient alert, patient awake, patient oriented x3 and no focal motor deficits Cognition: abnormal cognition (poor historian, poor short-term memory) Speech: speech normal Gait: antalgic, shuffling and gait assisted Motor: strength abnormal Extrem General: no pedal edema and muscle atrophy Psych Appearance: disheveled Speech and Movement: speech clear Mood: congruent mood Affect: indifferent Attitude: cooperative Thought Process: illogical and impoverished Thought Content: compulsions, delusions, phobias and other (he is a hoarder, house filled with garbage, out of date food, etc. ) Insight: limited Judgment: limited Results Labs Labs: Laboratory Results - last 24 hr 11/29/20 12:05 COVID-19 Source Nasal/Nares SARS-CoV-2 (PCR) Negative Last Vital Signs Temp 97.3 F L 11/29/20 16:20 Pulse 54 L 11/29/20 16:20 Resp 20 11/29/20 16:20 BP 148/88 H 11/29/20 16:20 Pulse Ox 97 11/29/20 16:20 PAWSS Pt Consumed Any Amount of Alcohol Within the Last 30 days OR had positive WILLIAM Upon Admission: No
[2020-11-29] MEDS: Omeprazole 20 MG CAPCR 40 MG PO (20:37)
[2020-11-29] MEDS: Gabapentin 300 MG CAP PO (21:41)
[2020-11-29] MEDS: Senna TAB PO (21:41)
[2020-11-30] MEDS: Ondansetron O.D.T. 4 MG TABEF PO ×4 (01:11→17:40)
[2020-11-30] MEDS: Omeprazole 20 MG CAPCR 40 MG PO ×2 (07:48→20:38)
[2020-11-30] MEDS: Lidocaine 2% Jelly 11 ML SYR (08:57)
--- NOTE | 2020-11-30 16:00 | PDOC.CMPRO ---
- If Service Date Differs Date of service: 11/30/20 Time of Service: 16:00 Care Management Progress Note S/O: Manuel was sleeping when CM met with him. Per Dr. Mcmillan's report, Manuel lives in [place], alone, in a house with no running water. He was unkempt on arrival, and was able to wash up, which per report, was his first shower in a year. He has outlived most of his family. He has a niece nearby who he no longer has contact with. His health has declined over the past 18 months, and his pain and protein calorie malnutrition have qualified him for Hospice. He is currently at [facility] for symptom management, which will be followed by respite for 5 days. He may gain strength during this visit, as he will have his meals provided regularly. At this time, the plan is for him to return home with a resumption of hospice support when cleared by MD. He is agreeable to stay for 7-10 days. CM will continue to follow. A: Manuel is a 75 year old male admitted to [facility] on 11/29/20 for hospice symptom management, uncontrolled pain. P: Manuel will remain on symptom management until he is cleared by his hospice provider. He will then transition to respite for 5 days. He will return home once his respite is complete. CM will coordinate transport. He will be followed by Hospice in the community. CM will continue to follow.
[2020-11-30] MEDS: Promethazine 25 MG TAB PO (17:49)
--- NOTE | 2020-11-30 18:39 | W.PM.PROGNOT ---
Date of Service Date of service: 11/30/20 Time of Service: 08:01 Assessment and Plan Assessment and plan (1) Uncontrolled pain: Status: Acute Assessment and plan: Primary nurse Jennifer reports that Manuel has not complained of pain to her. He did to me. (He is often a contradictory historian). Given his c/o pain, I increased his morphine from 2 mg to 4 mg/hr with a 1 mg bolus q 15 minutes. He is not using boluses. Given changes in medication, continue on symptom management. (2) Hospice care patient: Status: Acute Assessment and plan: Expect he will need another few days on symptom management, and then will transition to respite, UNLESS he takes a turn for the worse and starts actively dying. He did tell me in the day of admission that he thought he might in the hospital. Will see. (3) Generalized weakness: Status: Acute Assessment and plan: Has not been up out of bed, walking in the halls. He feels too weak. Will see if he is up to getting to the recliner tomorrow. He may be bedbound. (4) Insect bites: Status: Acute Assessment and plan: He said his lesions were tick bites, but this seems unlikely, given the number and the mostly healed appearance. ? testing for Lyme Disease? Unsure if any aspects of his illness could be attributed to this. Will discuss with hospice team and Manuel. (5) Protein calorie malnutrition: Status: Acute Assessment and plan: He may have overeaten on the day of admission, which led to his nausea and vomiting this am. Will encourage him to take in less at mealtimes, and snack during the day, if he desires. Some of his weight loss and malnutrition may be functional, illustrative of his self-neglect. Note that both [facility], as well has his PCP, have grave concerns about his ability to care for himself. (6) Nausea and vomiting: Status: Acute Assessment and plan: Will schedule ondansetron tid to see if this helps. Talked to Jennifer in the late afternoon and she reported a notable improvement in Manuel's symptoms with this intervention. Subjective Subjective Patient reports: still having pain, pain is less, nausea and vomiting Interval history since last seen: This am, nurses were able to insert a 12 Wolof catheter to help Manuel urinate. He had more than 1000 ccs of urine out immediately. He had not been able to urinate since he was admitted. He has a notably large prostate, thus the difficulty in cathing him. He reported to me that he had vomited twice in the early am. He was still nauseated when I visited. He ate more yesterday noon and dinner than he had eaten in a long time--at least a month, he thinks. He has no appetite today. He's not sure if he had a BM since his admission. He had multiple lesions on his legs, which he reports are tick bites. They resemble insect bites, but unlikely due to ticks. He had a thorough bath upon admission. No reported insect infestation in his clothes. He says his pain is better, though not gone. He has not gotten out of bed to the chair. He is tired. He is running down. Exam Const General: cooperative, frail appearing and ill appearing chronically Nutritional Appearance: malnourished and thin Orientation: alert, awake and oriented x3 [facility] Head: normal to inspection, normocephalic and atraumatic Ears: hearing grossly normal bilaterally Face and sinus: normal facial exam, face symmetric and dry mucous membranes Teeth and gingiva: edentulous (some partial teeth left in gums), gingiva abnormal and poor dentition Eyes Conjunctivae: conjunctivae normal Sclera: sclerae normal Neck Neck: no lymphadenopathy Chest Chest: normal inspection of the chest Resp Effort & Inspection: normal respiratory effort and able to speak in complete sentences Auscultation: clear to auscultation bilaterally Cardio Jugular venous pressure: no JVD Rate: regular rate Rhythm: regular rhythm Heart Sounds: S1 normal and S2 normal GI Inspection: scaphoid Palpation: soft and tender (tenderness extends into his inguinal region, no hernia appreciated) in the RLQ Auscultation: hypoactive bowel sounds Male General Exam: Yes normal external exam and Yes tenderness (in his right inguinal region) Skin General skin exam: pallor Lesions: lesion noted (both LE, multiple, c/w healing insect bites, no ticks embedded) Hair: male pattern alopecia Nails: dystrophic Neuro General: patient alert, patient awake, patient oriented x3 and no focal motor deficits Cognition: abnormal cognition (poor historian, poor short-term memory) Speech: speech normal Gait: antalgic, shuffling and gait assisted Motor: strength abnormal Extrem General: no pedal edema and muscle atrophy Psych Appearance: disheveled Speech and Movement: speech clear Mood: congruent mood Affect: indifferent Attitude: cooperative Thought Process: illogical and impoverished Thought Content: compulsions, delusions and phobias Insight: limited Judgment: limited Other: He is not anxious today, not talking about going home AMA. Objective Last Vital Signs Temp 97.3 F L 11/29/20 16:20 Pulse 54 L 11/29/20 16:20 Resp 20 11/29/20 16:20 BP 148/88 H 11/29/20 16:20 Pulse Ox 97 11/29/20 16:20 PAWSS Pt Consumed Any Amount of Alcohol Within the Last 30 days OR had positive WILLIAM Upon Admission: No
[2020-11-30] MEDS: Gabapentin 300 MG CAP PO (22:14)
[2020-11-30] MEDS: Senna TAB PO (22:14)
[2020-12-01] MEDS: Ondansetron O.D.T. 4 MG TABEF PO (04:36)
[2020-12-01] MEDS: Omeprazole 20 MG CAPCR 40 MG PO ×2 (06:40→20:54)
--- NOTE | 2020-12-01 12:11 | PGE_ITS ---
Date of Service Date of service: 12/01/20 Time of Service: 11:11 Assessment and Plan Assessment and plan (1) Uncontrolled pain: Status: Acute Assessment and plan: Now controlled. As he has been on same CADD pump dose x 2 days, and not requiring many boluses (one or 2 per day) will change him to respite starting tomorrow, 12/02. We have team meeting on 12/04 to discuss placement for him. Manuel has always said he would rather than go to a [facility]. He knows he cannot go home. (2) Hospice care patient: Status: Acute Assessment and plan: For protein calorie malnutrition, unintentional weight loss (>40 lbs in 1 year, >20 lbs in last 3 mos), and chronic abdominal pain of uncertain significance. He has been on symptom management 11/29, 11/30 and 12/01. Will start 5 night respite stay 12/02. Tg [place] covering. (3) Generalized weakness: Status: Acute Assessment and plan: Has not been OOB much since admission. Is quite weak. Has lost most of his muscle mass in his legs and arms. Able to get from bed to chair with assistance, however. (4) Nausea and vomiting: Status: Acute Assessment and plan: Mild today. Has scheduled ondansetron. Unsure what caused his episode yesterday---increase in morphine? eating 100% of his meals after eating very little? Will treat sx as they arise. (5) Protein calorie malnutrition: Status: Acute (6) Poor housing: Status: Acute Assessment and plan: Unsafe at home. No way to close door. + rodent and insect infestations at home. No running water, intermittent electricity, no heat for the winter. (7) Unintentional weight loss: Status: Chronic (8) Abdominal pain in male: Status: Chronic (9) Right inguinal hernia: Status: Acute (10) Right groin pain: Status: Acute Subjective Subjective Patient reports: no new complaints, feels better, pain is less, tolerating a regular diet and nausea; denies vomiting Interval history since last seen: I saw Manuel in his room. His primary nurse, Khalida, was also present. He was very comfortable. His pain was controlled on his morphine pump at 4 mg/hr with a 2 mg bolus q 15 minutes. He had been at 2 mg/hr with 1 mg bolus on admission. He now feels his pain is well controlled. He is still somewhat nauseated, but the ondansetron is helping a lot. We talked about him taking in smaller, more frequent meals. He is happy to have the chavez in place. He reports that he was really struggling to urinate at home, and was always incontinent. He acknowledges that he is unable to care for himself. He tells me he knows he cannot return home. He seems resigned, sad, and accepting of this. He is enjoying having people care for him. He feels safe in the hospital. He had anticipated that his experience would be awful, but he is pleasantly surprised. Exam Const General: cooperative, frail appearing and ill appearing chronically Nutritional Appearance: malnourished and thin Orientation: alert, awake and oriented x3 HENMT Head: normal to inspection, normocephalic and atraumatic Ears: hearing grossly normal bilaterally Face and sinus: normal facial exam and face symmetric Teeth and gingiva: edentulous (some partial teeth left in gums), gingiva abnormal and poor dentition Eyes Conjunctivae: conjunctivae normal Sclera: sclerae normal Neck Neck: no lymphadenopathy Chest Chest: normal inspection of the chest Resp Effort & Inspection: normal respiratory effort and able to speak in complete sentences Auscultation: clear to auscultation bilaterally Cardio Jugular venous pressure: no JVD Rate: regular rate Rhythm: regular rhythm Heart Sounds: S1 normal and S2 normal GI Inspection: scaphoid Palpation: soft and tender (tenderness extends into his inguinal region, no hernia appreciated) in the RLQ Auscultation: hypoactive bowel sounds Male General Exam: Yes normal external exam and Yes tenderness (in his right inguinal region) Skin General skin exam: pallor Lesions: lesion noted (both LE, multiple, c/w healing insect bites, no ticks embedded) Hair: male pattern alopecia Nails: dystrophic Neuro General: patient alert, patient awake, patient oriented x3 and no focal motor deficits Cognition: abnormal cognition (poor historian, poor short-term memory) Speech: speech normal Gait: antalgic, shuffling and gait assisted Motor: strength abnormal Extrem General: no pedal edema and muscle atrophy Psych Appearance: disheveled Speech and Movement: speech clear Mood: congruent mood Affect: indifferent Attitude: cooperative Thought Process: illogical and impoverished Thought Content: compulsions, delusions and phobias Insight: limited Judgment: limited Objective Last Vital Signs Temp 97.3 F L 11/29/20 16:20 Pulse 54 L 11/29/20 16:20 Resp 20 11/29/20 16:20 BP 148/88 H 11/29/20 16:20 Pulse Ox 97 11/29/20 16:20 PAWSS Pt Consumed Any Amount of Alcohol Within the Last 30 days OR had positive WILLIAM Upon Admission: No
--- NOTE | 2020-12-01 15:20 | PHA.REVIEW ---
Pharmacy Admission Review - Admission Clinical Review Nausea and vomiting (Acute) Uncontrolled pain (Acute) Hospice care patient (Acute) Generalized weakness (Acute) Insect bites (Acute) Protein calorie malnutrition (Acute) Adult failure to thrive (Acute) Poor housing (Acute) [place] Allergy (Severe, Verified 09/25/20 16:01) Swelling/Edema No Known Drug Allergies Allergy (Verified 09/25/20 16:01) Resuscitation Status DNR/DNI Height 5 ft 10.08 in Weight 72.9 kg - Renal Dosing Medications needing adjustments: Reviewed (Crcl ~73 mL/min using SCr from September 2020. Current meds okay.) - Anticoagulation DVT Prophylaxis: N/A Therapeutic Anticoagulation: N/A - Opiate Usage Evaluate Pain Scale/Pains Meds: Reviewed Scheduled Bowel Reg ordered if on Opiates?: Yes - Relevant Labs Electrolytes, C-Reactive P, ESR: N/A - DM Control Insulin Dosing: N/A - Heart Failure/WV EF%, SHIELA's, B-Blockers, Diuretics: N/A - BP Control If elevated: N/A - Qtc Review If Elevated: N/A - IV to PO Switch IV Medications: Reviewed - Home Meds Home Med List reviewed: Reviewed (Some palliative meds on external med history that are not on the pt's home med list, but pt has similar meds currently ordered.) Relevent Home Meds Not ordered & why?: both home meds currently ordered - Current meds Current Medication Order Review: Reviewed - Comments Comments/Follow Ups: Hospice symptom management. Watch for med changes.
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
[2020-12-01] MEDS: Gabapentin 300 MG CAP PO (20:54)
[2020-12-01] MEDS: Senna TAB PO (20:55)
[2020-12-02] MEDS: Omeprazole 20 MG CAPCR 40 MG PO (07:55)
[2020-12-02] MEDS: Ondansetron O.D.T. 4 MG TABEF PO ×2 (11:42→17:34)
--- NOTE | 2020-12-02 17:11 | CHAPLAIN ---
Manuel was sitting up in the chair watching tv when I stopped in. He said he had just finished his breakfast, although it was just past [address] Mcmillan's hospice notes, Manuel lives in [place] by himself. His home does not have running water, heat or electricity. Hospice and [facility] have been working with him to change his living conditions. He apparently doesn't have any family members willing to assist him. He looks like he's had a shower and shave. Dr. Mcmillan said he hopes he will stay here for symptom management and then respite, for a total of 7 to 10 days. In the past he has left AMA. 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 I left when he got a phone call.
[2020-12-03] MEDS: Scopolamine 1 MG/3 DAYS PATCH TD (09:11)
--- NOTE | 2020-12-03 11:24 | CMPROGNOTE_ITS ---
- If Service Date Differs Date of service: 12/03/20 Time of Service: 11:24 Care Management Progress Note S/O: Manuel was unresponsive when CM attempted to meet with him. Per RN, he has been unresponsive all day, which is a big change from yesterday. Per provider, he will likely pass on this admission. A: Manuel is a 75 year old male admitted to [facility] on 11/29/20 for hospice symptom management, uncontrolled pain. P: CM was informed that Manuel passed this afternoon. Eyad will be contacted fo r final arrangements, which will be coordinated with the state [facility], as he does not have prior arrangements, nor any assets.
[2020-12-03] MEDS: Glycopyrrolate 0.2 MG/1 ML VIAL IM (13:20)
--- NOTE | 2020-12-03 16:01 | W.PM.PROGNOT ---
Date of Service Date of service: 12/03/20 Time of Service: 16:01 Assessment and Plan Assessment and plan (1) Uncontrolled pain: Status: Acute Assessment and plan: Continue MS pump. (2) Generalized weakness: Status: Acute (3) Insect bites: Status: Acute (4) Protein calorie malnutrition: Status: Acute (5) Nausea and vomiting: Status: Acute (6) Hospice care patient: Status: Acute Assessment and plan: Manuel is actively dying. He is completely unresponsive. He appears comfortable. Continue MS pump. Increased secretions have improved with scopolamine patch. He also has atropine drops and robinul for PRN use. He appears to be actively dying. Continue comfort care. His life expectancy is measured in hours to days. Continue hospice symptom management. Subjective Subjective Interval history since last seen: Manuel is admitted to [facility]. He is back on symptom management today in the setting of increased symptoms. He had vomiting overnight and likely aspirated. He was noted to be unresponsive and experiencing increased respiratory secretions which improved with intervention. He is on a MS pump for pain, currently at 12 mg/hr. He appears comfortable. He is unresponsive. Exam Narrative Exam Narrative: General: elderly man, laying in bed with HOB elevated, eyes closed. He is completely unresponsive. HEENT: normocephalic, atraumatic, eyes remained closed for the visit. Mucous membranes dry. Cardiovascular: heart sounds regular. Respiratory: respirations appear unlabored, wheezes noted throughout lung [place]. GI: abdomen is flat/soft, nondistended. Extremities: warm, no edema, no mottling. Objective Last Vital Signs Temp 36.3 C L 11/29/20 16:20 Pulse 54 L 11/29/20 16:20 Resp 20 11/29/20 16:20 BP 148/88 H 11/29/20 16:20 Pulse Ox 97 11/29/20 16:20 PAWSS Pt Consumed Any Amount of Alcohol Within the Last 30 days OR had positive WILLIAM Upon Admission: No
--- NOTE | 2020-12-11 10:01 | W.PM.DDS ---
Date of service: 12/03/20 Time of Service: 16:34 Discharge Sum: Prov Provider Consults: 11/29/20 09:18 Manager Online Consult [CONS] Routine Consultation Status:: Follow-up needed Clarification:: Manage/follow per spec. Reason for consult:: Manuel has enjoyed talking to pizza hut assistant. 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 He thinks he is getting close to the end of his life. He likely is. Discharge Sum: Diag Contributing Factors (1) Uncontrolled pain: (2) Hospice care patient: (3) Generalized weakness: (4) Nausea and vomiting: (5) Protein calorie malnutrition: (6) Poor housing: (7) Unintentional weight loss: (8) Abdominal pain in male: (9) Right inguinal hernia: (10) Right groin pain:
== END 2020-12-03 16:34 | disposition expired | DRG 92 ==
PROVIDERS: Admitting Provider Family Medicine; PCP Nurse Practitioner; Visit Provider Family Medicine
DX: G89.29 Other chronic pain (principal); E46 Unspecified protein-calorie malnutrition; R62.7 Adult failure to thrive; R53.1 Weakness; Z51.5 Encounter for palliative care; Z91.14 Patient's other noncompliance with medication regimen; R63.4 Abnormal weight loss; R10.9 Unspecified abdominal pain; I25.10 Atherosclerotic heart disease of native coronary artery without angina pectoris; R53.82 Chronic fatigue, unspecified; R19.7 Diarrhea, unspecified; E11.9 Type 2 diabetes mellitus without complications; Z66 Do not resuscitate; I10 Essential (primary) hypertension; K76.0 Fatty (change of) liver, not elsewhere classified; R29.6 Repeated falls; Z91.81 History of falling; F60.89 Other specific personality disorders; K21.9 Gastro-esophageal reflux disease without esophagitis; E78.5 Hyperlipidemia, unspecified; K29.60 Other gastritis without bleeding; T39.395A Adverse effect of other nonsteroidal anti-inflammatory drugs [NSAID], initial encounter; R11.2 Nausea with vomiting, unspecified; T14.8XXA Other injury of unspecified body region, initial encounter; W57.XXXA Bitten or stung by nonvenomous insect and other nonvenomous arthropods, initial encounter
CPT/HCPCS: 87635; J3490